=== PATIENT | female | born 1965 | race Caucasian/White ===

== ENCOUNTER 2024-10-06 11:39 | Outpatient (REF) | payer OTHER, SELFPAY ==
--- OUTSIDE RECORDS SUMMARY | 2024-10-07 14:07 | XMS_ITS | Encounter Summary ---
Author Organization [facility] Address [address] [place] [address] Care Team Providers Care Learning Analyst Name Role Phone Melisa Jensen MD Primary Care Provider Reason for Visit * Reason Comments Flank Pain Left flank pain with nausea hx of kidney stones Encounter Details Date Type Department Care Team (Late st Contact Info) Description 10/01/2024 5:11 PM EDT - 10/01/2024 9:29 PM EDT Emergency [facility] Emergency [address] [place] [id number] Bilateral flank pain (Primary Dx); LUQ pain [...] a primary care physician, please call the [facility] at [phone] [facility] a new primary care physician. Please return to the emergency department if you develop any severe change in your symptoms, or if you experience any other new or worsening symptoms or concerns. * Attachments The following attachments cannot be sent through Care Everywhere. * Abdominal Pain (Italian) * Flank Pain (Italian) documented in this encounter Medications at Time [...] REFLEX MICROSCOPIC AND CULTURE - Abnormal Specific [place] Urine 1.006 pH, Urine 6.5 Leukocytes, Urine [...] Procedure Abnormality Status --------- ------ CBC auto differential[[id number]] Final result Please view results for these tests on the individual orders. URINALYSIS WITH REFLEX MICROSCOPIC AND CULTURE Narrative: The following orders were created for panel order Urinalysis with reflex microscopic and culture. Procedure Abnormality Status --------- ------ Urinalysis with reflex ...[[id number]] Abnormal Final result Ward urine culture tube[[id number]] Final result Please view results for these [...] LAB CHEMISTRY METHOD 10/01/2024 6:38 PM EDT [facility] Blood Venous blood specimen / Unknown Venipuncture / Unknown 10/01/2024 5:23 PM EDT 10/01/2024 6:01 PM EDT us Fransico FIGUEROA LAB BLOOD ORDERABLES Final Resul t [facility] [address] [place] [address], [place] [phone] * CBC auto differential (10/01/2024 5:23 PM EDT) [facility] WBC 9.2 4.8 - 10.8 K/mcL LAB HEMETOLOGY METHOD 10/01/2024 6:18 PM EDT [facility] RBC 4.20 3.80 - 4.80 M/mcL LAB HEMETOLOGY METHOD 10/01/2024 6:18 PM EDT [facility] Hemoglobin 12.8 11.5 - 16.0 g/dL LAB HEMETOLOGY METHOD 10/01/2024 6:18 PM EDT [facility] Hematocrit 39.3 35.0 - 47.0 % LAB HEMETOLOGY METHOD 10/01/2024 6:18 PM EDT [facility] MCV 94.5 79.0 - 98.0 FL LAB HEMETOLOGY METHOD 10/01/2024 6:18 PM EDT [facility] MCH 30.8 27.0 - 32.0 pcg LAB HEMETOLOGY METHOD 10/01/2024 6:18 PM EDT [facility] MCHC 32.6 32.0 - 37.0 g/dL LAB HEMETOLOGY METHOD 10/01/2024 6:18 PM EDT [facility] RDW 12.5 11.0 - 15.0 % LAB HEMETOLOGY METHOD 10/01/2024 6:18 PM EDT [facility] Platelets 322 130 - 400 K/mcL LAB HEMETOLOGY METHOD 10/01/2024 6:18 PM EDT [facility] MPV 10.2 7.0 - 11.0 FL LAB HEMETOLOGY METHOD 10/01/2024 6:18 PM EDT [facility] NRBC 0.0 <1.0 % LAB HEMETOLOGY METHOD 10/01/2024 6:18 PM EDT [facility] NRBC Absolute 0.00 <0.10 K/mcL LAB HEMETOLOGY METHOD 10/01/2024 6:18 PM EDT [facility] Neutrophils Relative 57.6 % LAB HEMETOLOGY METHOD 10/01/2024 6:18 PM EDT [facility] Lymphocytes Relative 33.6 % LAB HEMETOLOGY METHOD 10/01/2024 6:18 PM [facility] Monocytes Relative 5.0 % LAB HEMETOLOGY METHOD 10/01/2024 6:18 PM [facility] Eosinophils Relative 2.8 % LAB HEMETOLOGY METHOD 10/01/2024 6:18 PM [facility] Basophils Relative 0.8 % LAB HEMETOLOGY METHOD 10/01/2024 6:18 PM [facility] Immature Granulocytes Relative 0.2 % LAB HEMETOLOGY METHOD 10/01/2024 6:18 PM [facility] Neutrophils Absolute 5.29 1.50 - 7.00 K/mcL LAB HEMETOLOGY METHOD 10/01/2024 6:18 PM [facility] Lymphocytes Absolute 3.08 1.00 - 5.00 K/mcL LAB HEMETOLOGY METHOD 10/01/2024 6:18 PM [facility] Monocytes Absolute 0.46 0.20 - 1.00 K/mcL LAB HEMETOLOGY METHOD 10/01/2024 6:18 PM [facility] Eosinophils Absolute 0.26 0.00 - 0.50 K/mcL LAB HEMETOLOGY METHOD 10/01/2024 6:18 PM [facility] Basophils Absolute 0.07 0.00 - 0.20 K/mcL LAB HEMETOLOGY METHOD 10/01/2024 6:18 PM [facility] Immature Granulocytes Absolute 0.02 0.00 - 0.03 K/mcL LAB HEMETOLOGY METHOD 10/01/2024 6:18 PM [facility] Blood Venous blood specimen / Unknown Venipuncture / Unknown 10/01/2024 5:23 PM EDT 10/01/2024 6:01 PM EDT us Rashard Boyd MD LAB BLOOD ORDERABLES Final Resu lt [facility] [address] [place] [address], [place] [phone] * (ABNORMAL) Comprehensive metabolic panel (10/01/2024 5:23 PM EDT) Pathologist [facility] Sodium 139 133 - 145 mmol/L LAB CHEMISTRY METHOD 10/01/2024 6:38 PM EDT [facility] Potassium 4.1 3.5 - 5.5 mmol/L LAB CHEMISTRY METHOD 10/01/2024 6:38 PM [facility] Chloride 106 96 - 110 mmol/L LAB CHEMISTRY METHOD 10/01/2024 6:38 PM T [facility] CO2 25 21 - 32 mmol/L LAB CHEMISTRY METHOD 10/01/2024 6:38 PM EDT [facility] Anion Gap 8 3 - 11 LAB CHEMISTRY METHOD 10/01/2024 6:38 PM [facility] Glucose 92 70 - 100 mg/dL LAB CHEMISTRY METHOD 10/01/2024 6:38 PM [facility] BUN 15 5 - 25 mg/dL LAB CHEMISTRY METHOD 10/01/2024 6:38 PM EDT [facility] Creatinine 0.95 0.50 - 1.10 mg/dL LAB CHEMISTRY METHOD 10/01/2024 6:38 PM [facility] eGFR 69 >=60 mL/min/1. 73m2 LAB CHEMISTRY METHOD 10/01/2024 6:38 PM T [facility] Comment:Calculation based on the??Chronic Kidney Disease Epidemiology Collaboration (CKD-EPI) equation refit??without adjustment for race. BUN/Creatinine Ratio 15.8 LAB CHEMISTRY METHOD 10/01/2024 6:38 PM EDT [facility] Calcium 10.6(H) 8.5 - 10.5 mg/dL LAB CHEMISTRY METHOD 10/01/2024 6:38 PM EDT [facility] AST (SGOT) 24 10 - 42 unit/L LAB CHEMISTRY METHOD 10/01/2024 6:38 PM T [facility] ALT (SGPT) 21 10 - 60 unit/L LAB CHEMISTRY METHOD 10/01/2024 6:38 PM EDT [facility] Alkaline Phosphatase 65 42 - 121 unit/L LAB CHEMISTRY METHOD 10/01/2024 6:38 PM EDT [facility] Total Protein 7.7 6.0 - 8.0 g/dL LAB CHEMISTRY METHOD 10/01/2024 6:38 PM [facility] Albumin 4.9 3.2 - 5.0 g/dL LAB CHEMISTRY METHOD 10/01/2024 6:38 PM T [facility] Total Bilirubin 0.6 0.0 - 1.4 mg/dL LAB CHEMISTRY METHOD 10/01/2024 6:38 PM T [facility] Blood Venous blood specimen / Unknown Venipuncture / Unknown 10/01/2024 5:23 PM EDT 10/01/2024 6:01 PM EDT us Rashard Boyd MD LAB BLOOD ORDERABLES Final Resu lt [facility] [address] [place] [address], * ECG 12 lead (10/01/2024 4:55 PM EDT) Ventricular Rate ECG 57 BPM GEMUSE Atrial Rate 57 BPM GEMUSE P-R Interval 158 ms GEMUSE QRS Duration 92 ms GEMUSE Q-T Interval 448 ms GEMUSE QTc 436 ms GEMUSE P Wave Burke 61 degrees GEMUSE R Burke -32 degrees GEMUSE T Burke 24 degrees GEMUSE ECG Interpretation Sinus bradycardia [...] ECG ORDERABLES Final Result Performing Organization Address [facility] Co de Phone Number GEMUSE * Culture urine (10/01/2024 3:55 PM EDT) Pathologist [facility] Culture, Urine <10,000 cfu/ml, insignificant count, no further workup. 10/02/2024 8:23 AM EDT [facility] Urine Urine specimen obtained by clean catch procedure / Unknown Non-blood Collection / Unknown 10/01/2024 3:55 PM EDT 10/01/2024 4:13 PM EDT us Rashard Boyd MD LAB MICROBIOLOGY - GENERAL ORDE RABLES Final Result Performing Organization Address [facility] de Phone Number [facility] [address] [place] [address], [place] [phone] * Ward urine culture tube (10/01/2024 3:55 PM EDT) Extra Tube Hold for add-ons. 10/01/2024 6:02 PM EDT [facility] Comment:Auto resulted. Urine Urine specimen obtained by clean catch procedure / Unknown Non-blood Collection / Unknown 10/01/2024 3:55 PM EDT 10/01/2024 4:07 PM EDT us Rashard Boyd MD LAB URINE ORDERABLES Final Resu lt [facility] [address] [place] [address], [place] [phone] * (ABNORMAL) Urinalysis with reflex microscopic and culture (10/01/2024 3:55 PM EDT) Specific [place] Urine 1.006 1.003 - 1.030 LAB URINALYSIS - AUTOMATED METHOD 10/01/2024 4:13 PM [facility] pH, Urine 6.5 5.0 - 8.0 pH LAB URINALYSIS - AUTOMATED METHOD 10/01/2024 4:13 PM [facility] Leukocytes, Urine Small(A) Negative LAB URINALYSIS - AUTOMATED METHOD 10/01/2024 4:13 PM [facility] Nitrite, Urine Negative Negative LAB URINALYSIS - AUTOMATED METHOD 10/01/2024 4:13 PM [facility] Protein, Urine Negative <=Trace mg/dL LAB URINALYSIS - AUTOMATED METHOD 10/01/2024 4:13 PM [facility] Glucose, Urine Negative Negative mg/dL LAB URINALYSIS - AUTOMATED METHOD 10/01/2024 4:13 PM [facility] Ketones, Urine Negative Negative mg/dL LAB URINALYSIS - AUTOMATED METHOD 10/01/2024 4:13 PM [facility] Urobilinogen, Urine 0.2 0.2 - 1.0 mg/dL LAB URINALYSIS - AUTOMATED METHOD 10/01/2024 4:13 PM [facility] Bilirubin, Urine Negative Negative LAB URINALYSIS - AUTOMATED METHOD 10/01/2024 4:13 PM [facility] Blood, Urine Negative Negative LAB URINALYSIS - AUTOMATED METHOD 10/01/2024 4:13 PM [facility] RBC, Urine 0.5 0 - 4 /HPF LAB URINALYSIS - AUTOMATED METHOD 10/01/2024 4:13 PM EDT [facility] WBC, Urine 3.9 0 - 4 /HPF LAB URINALYSIS - AUTOMATED METHOD 10/01/2024 4:13 PM EDT [facility] Squamous Epithelial, Urine 64(H) 0 - 60 /LPF LAB URINALYSIS - AUTOMATED METHOD 10/01/2024 4:13 PM EDT [facility] Bacteria, Urine Negative Negative /HPF LAB URINALYSIS - AUTOMATED METHOD 10/01/2024 4:13 PM [facility] Hyaline Casts, Urine 1.6 0 - 3 /LPF LAB URINALYSIS - AUTOMATED METHOD 10/01/2024 4:13 PM [facility] Urine Urine specimen obtained by clean catch procedure / Unknown Non-blood Collection / Unknown 10/01/2024 3:55 PM EDT 10/01/2024 4:07 PM EDT us Rashard Boyd MD LAB URINE ORDERABLES Final Resu lt [facility] [address] [place] [address], documented in this encounter Visit Diagnoses Diagnosis [...] 10/01/2024 documented in this encounter Care Teams Learning Analyst Relationship Specialty Start Date End Date Melisa Jensen MD [address] [place] [phone] PCP - General Internal Medicine 10/01/24 documented as of this encounter
--- OUTSIDE RECORDS SUMMARY | 2024-10-07 14:07 | XMS_ITS | Clinical Summary ---
Author Organization [address] [facility] Address [address] [place] [address] Phone Care Team Providers Care Coil Cutter Name Role Phone Melisa Jensen MD Primary Care Provider [phone] Allergies Active Allergy Reactions Criticality Noted Date [...] of the cervical spine today taken at [facility] and it shows good position [...] EDT - 10/01/2024 9:29 PM EDT Emergency [facility] Emergency [address] [place] [address] Bilateral flank pain (Primary Dx); LUQ pain Discharge Disposition: Home or Self Care 09/17/2024 Telephone Neurosurgery [facility] [address] [phone] Joann Myers PA 08/17/2024 Telephone Neurosurgery [facility] [address] [phone] Kirstie Kramer MA from Last [...] LAB HEMETOLOGY METHOD 10/01/2024 6:18 PM EDT [facility] RBC 4.20 3.80 - 4.80 M/mcL LAB HEMETOLOGY METHOD 10/01/2024 6:18 PM EDT [facility] Hemoglobin 12.8 11.5 - 16.0 g/dL LAB HEMETOLOGY METHOD 10/01/2024 6:18 PM EDT [facility] Hematocrit 39.3 35.0 - 47.0 % LAB HEMETOLOGY METHOD 10/01/2024 6:18 PM EDT [facility] MCV 94.5 79.0 - 98.0 FL LAB HEMETOLOGY METHOD 10/01/2024 6:18 PM EDT [facility] MCH 30.8 27.0 - 32.0 pcg LAB HEMETOLOGY METHOD 10/01/2024 6:18 PM EDT [facility] MCHC 32.6 32.0 - 37.0 g/dL LAB HEMETOLOGY METHOD 10/01/2024 6:18 PM EDT [facility] RDW 12.5 11.0 - 15.0 % LAB HEMETOLOGY METHOD 10/01/2024 6:18 PM EDT [facility] Platelets 322 130 - 400 K/mcL LAB HEMETOLOGY [facility] MPV 10.2 7.0 - 11.0 FL LAB HEMETOLOGY METHOD 10/01/2024 6:18 PM EDT [facility] NRBC 0.0 <1.0 % LAB HEMETOLOGY METHOD [facility]24 6[facility] NRBC Absolute 0.00 <0.10 K/mcL LAB HEMETOLOGY METHOD 10/01/2024 6:18 PM [facility] Neutrophils Relative 57.6 % LAB HEMETOLOGY METHOD 10/01[facility]2024 6[facility] Lymphocytes Relative 33.6 % LAB HEMETOLOGY METHOD 10/01/2024 6:18 PM [facility] Monocytes Relative 5.0 % LAB HEMETOLOGY METHOD 10/01/2024 6:18 PM [facility] Eosinophils Relative 2.8 % LAB HEMETOLOGY METHOD 10/01/2024 6:18 PM [facility] Basophils Relative 0.8 % LAB HEMETOLOGY METHOD 10/01/2024 6:18 PM [facility] Immature Granulocytes Relative 0.2 % LAB HEMETOLOGY METHOD 10/01/2024 6:[facility] Neutrophils Absolute 5.29 1.50 - 7.00 K/mcL LAB HEMETOLOGY METHOD 10/01/2024 6:18 [facility] Lymphocytes Absolute 3.08 1.00 - 5.00 K/mcL LAB HEMETOLOGY METHOD 10/01/2024 6:18 PM EDT [facility] Monocytes Absolute 0.46 0.20 - 1.00 K/[facility] LAB HEMETOLOGY METHOD 10/01/2024 6:18 PM EDT [facility] Eosinophils Absolute 0.26 0.00 - 0.50 K/[facility] LAB HEMETOLOGY METHOD 10/01/2024 6:18 PM EDT [facility] Basophils Absolute 0.07 0.00 - 0.20 K/[facility] LAB HEMETOLOGY METHOD 10/01/2024 6:18 PM EDT [facility] Immature Granulocytes Absolute 0.02 0.00 - 0.03 K/[facility] LAB HEMETOLOGY METHOD 10/01/2024 6:18 PM EDT [facility] Blood Venous blood specimen / Unknown Venipuncture / Unknown 10/01/2024 5:23 PM EDT 10/01/2024 6:01 PM EDT us Rashard Boyd MD LAB BLOOD ORDERABLES Final Resu lt [facility] [address] [place] [address], [place] [phone] * Lipase (10/01/2024 5:23 PM EDT) Lipase 60 13 - 75 unit/L LAB CHEMISTRY METHOD 10/01/2024 6:38 PM EDT [facility] Blood Venous blood specimen / Unknown Venipuncture / Unknown 10/01/2024 5:23 PM EDT 10/01/2024 6:01 PM EDT us Fransico FIGUEROA LAB BLOOD ORDERABLES Final Resul t Performing Organization Address City/[facility]/ZIP Co de Phone Number [facility] [address] [place] [address], [place] [phone] * (ABNORMAL) Comprehensive metabolic panel (10/01/2024 5:23 PM EDT) Sodium 139 133 - 145 mmol/L LAB CHEMISTRY METHOD 10/01/2024 6:38 PM [facility] Potassium 4.1 3.5 - 5.5 mmol/L LAB CHEMISTRY METHOD 10/01/2024 6:38 PM [facility] Chloride 106 96 - 110 mmol/L LAB CHEMISTRY METHOD 10/01/2024 6:38 PM [facility] CO2 25 21 - 32 mmol/L LAB CHEMISTRY METHOD 10/01/2024 6:38 PM [facility] Anion Gap 8 3 - 11 LAB CHEMISTRY METHOD 10/01/2024 6:38 PM [facility] Glucose 92 70 - 100 mg/dL LAB CHEMISTRY METHOD 10/01/2024 6:38 PM [facility] BUN 15 5 - 25 mg/dL LAB CHEMISTRY METHOD 10/01/2024 6:38 PM [facility] Creatinine 0.95 0.50 - 1.10 mg/dL LAB CHEMISTRY METHOD 10/01/2024 6:38 PM [facility] eGFR 69 >=60 mL/min/1. 73m2 LAB CHEMISTRY METHOD 10/01/2024 6:38 PM [facility] Comment:Calculation based on the??Chronic Kidney Disease Epidemiology Collaboration (CKD-EPI) equation refit??without adjustment for race. BUN/Creatinine Ratio 15.8 LAB CHEMISTRY METHOD 10/01/2024 6:38 PM [facility] Calcium 10.6(H) 8.5 - 10.5 mg/dL LAB CHEMISTRY METHOD 10/01/2024 6:38 PM [facility] AST (SGOT) 24 10 - 42 unit/L LAB CHEMISTRY METHOD 10/01/2024 6:38 PM [facility] ALT (SGPT) 21 10 - 60 unit/L LAB CHEMISTRY METHOD 10/01/2024 6:38 PM EDT [facility] Alkaline Phosphatase 65 42 - 121 unit/L LAB CHEMISTRY METHOD 10/01/2024 6:38 PM EDT [facility] Total Protein 7.7 6.0 - 8.0 g/dL LAB CHEMISTRY METHOD 10/01/2024 6:38 PM EDT [facility] Albumin 4.9 3.2 - 5.0 g/dL LAB CHEMISTRY METHOD 10/01/2024 6:38 PM EDT [facility] Total Bilirubin 0.6 0.0 - 1.4 mg/dL LAB CHEMISTRY METHOD 10/01/2024 6:38 PM EDT [facility] Blood Venous blood specimen / Unknown Venipuncture / Unknown 10/01/2024 5:23 PM EDT 10/01/2024 6:01 PM EDT Rashard Boyd MD LAB BLOOD ORDERABLES Final Resu lt [facility] [address] [place] [address], * ECG 12 lead (10/01/2024 4:55 PM EDT) Ventricular Rate ECG 57 BPM GEMUSE Atrial Rate 57 BPM GEMUSE P-R Interval 158 ms GEMUSE QRS Duration 92 ms GEMUSE Q-T Interval 448 ms GEMUSE QTc 436 ms GEMUSE P Wave [place] 61 degrees GEMUSE R [place] -32 degrees GEMUSE T [place] 24 degrees GEMUSE ECG Interpretation Sinus bradycardia [...] and culture (10/01/2024 3:55 PM EDT) Specific [place] Urine 1.006 1.003 - 1.030 LAB URINALYSIS - AUTOMATED METHOD 10/01/2024 4:13 PM [facility] pH, Urine 6.5 5.0 - 8.0 pH LAB URINALYSIS - AUTOMATED METHOD 10/01/2024 4:13 PM [facility] Leukocytes, Urine Small(A) Negative LAB URINALYSIS - AUTOMATED METHOD 10/01/2024 4:13 PM [facility] Nitrite, Urine Negative Negative LAB URINALYSIS - AUTOMATED METHOD 10/01/2024 4:13 PM [facility] Protein, Urine Negative <=Trace mg/dL LAB URINALYSIS - AUTOMATED METHOD 10/01/2024 4:13 PM [facility] Glucose, Urine Negative Negative mg/dL LAB URINALYSIS - AUTOMATED METHOD 10/01/2024 4:13 PM [facility] Ketones, Urine Negative Negative mg/dL LAB URINALYSIS - AUTOMATED METHOD 10/01/2024 4:13 PM [facility] Urobilinogen, Urine 0.2 0.2 - 1.0 mg/dL LAB URINALYSIS - AUTOMATED METHOD 10/01/2024 4:13 PM [facility] Bilirubin, Urine Negative Negative LAB URINALYSIS - AUTOMATED METHOD 10/01/2024 4:13 PM [facility] Blood, Urine Negative Negative LAB URINALYSIS - AUTOMATED METHOD 10/01/2024 4:13 PM [facility] RBC, Urine 0.5 0 - 4 /HPF LAB URINALYSIS - AUTOMATED METHOD 10/01/2024 4:13 PM EDT [facility] WBC, Urine 3.9 0 - 4 /HPF LAB URINALYSIS - AUTOMATED METHOD 10/01/2024 4:13 PM EDT [facility] Squamous Epithelial, Urine 64(H) 0 - 60 /LPF LAB URINALYSIS - AUTOMATED METHOD 10/01/2024 4:13 PM EDT [facility] Bacteria, Urine Negative Negative /HPF LAB URINALYSIS - AUTOMATED METHOD 10/01/2024 4:13 PM EDT [facility] Hyaline Casts, Urine 1.6 0 - 3 /LPF LAB URINALYSIS - AUTOMATED METHOD 10/01/2024 4:13 PM EDT [facility] Urine Urine specimen obtained by clean catch procedure / Unknown Non-blood Collection / Unknown 10/01/2024 3:55 PM EDT 10/01/2024 4:07 PM EDT us Rashard Boyd MD LAB URINE ORDERABLES Final Resu lt Performing Organization Address [facility]/ZIP Co de Phone Number [facility] [address] [place] [address], [place] [phone] * Ward urine culture tube (10/01/2024 3:55 PM EDT) Extra Tube Hold for add-ons. 10/01/2024 6:02 PM EDT [facility] Comment:Auto resulted. Urine Urine specimen obtained by clean catch procedure / Unknown Non-blood Collection / Unknown 10/01/2024 3:55 PM EDT 10/01/2024 4:07 PM EDT us Rashard Boyd MD LAB URINE ORDERABLES Final Resu lt Performing Organization Address [facility]/ZIP Co de Phone Number [facility] [address] [place] [address], [place] [phone] * Culture urine (10/01/2024 3:55 PM EDT) Pathologist [facility] Culture, Urine <10,000 cfu/ml, insignificant count, no further workup. 10/02/2024 8:23 AM EDT [facility] Urine Urine specimen obtained by clean catch procedure / Unknown Non-blood Collection / Unknown 10/01/2024 3:55 PM EDT 10/01/2024 4:13 PM EDT Rashard Boyd MD LAB MICROBIOLOGY - GENERAL CAR [place] Final Result [facility] [address] [place] [address], * (ABNORMAL) Lipid panel (05/08/2018) [facility] LDL/HDL Ratio 5(A) 0 - 4 Triglycerides 254(A) 0 - 150 mg/dL Cholesterol 255(A) 0 - 200 mg/dL HDL 53 >=40 mg/dL LDL Cholesterol 152(A) 0 - 100 mg/dL Blood Venous blood specimen / Unknown Historical Provider LAB BLOOD ORDERABLES Naomi l Result * Cervical Cancer Screening: HPV (10/17/2016) [facility] Cervical Cancer Screening: HPV Abstracted, Negative Historical Provider HEALTH MAINTENANCE Final Result from Last 3 Months or Most Recently Relevant to Health Maintenance Insurance [facility] Advance Directives Documents on File Type Date Recorded Patient Senior Adults Director Expl anation Health Care Decision (hx) [...] 07/09/2014 AD [place] DIRECTIVE Care Teams Coil Cutter Relationship Specialty Start Date End Date Melisa Jensen MD [address] [place] [phone] PCP - General Internal Medicine 10/01/24
== END 2024-10-06 11:40 | disposition home or self-care (01) ==
LOC: HO.HOSX 11:39
PROVIDERS: Visit Provider Orthopaedic Surgery
DX: Z13.89 Encounter for screening for other disorder (principal)

== ENCOUNTER 2024-10-06 13:15 | Emergency (ER) | payer OTHER, SELFPAY ==
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
[2024-10-06 13:19] VITALS: BP 152/90; PULSE 97; O2SAT 98
[2024-10-06 13:28] VITALS: BP 145/81; PULSE 90; RESP 20; TEMP 36.8; O2SAT 95; BMI 21.8
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
[2024-10-06] MEDS: Acetaminophen 325 MG TABLET 975 MG PO (14:18)
[2024-10-06] MEDS: Cyclobenzaprine HCl 5 MG TABLET PO (14:18)
[2024-10-06 15:18] VITALS: BP 113/58; PULSE 60; RESP 20; TEMP 36.7; O2SAT 96
[2024-10-06 16:47] VITALS: BP 113/58; PULSE 60; RESP 20; TEMP 36.7; O2SAT 96
--- OUTSIDE RECORDS SUMMARY | 2024-10-06 17:11 | XMS_ITS | Encounter Summary ---
Author Organization [facility] Address [address] [place] [address] Care Team Providers Care [employer] Operator Name Role Phone Melisa Jensen MD Primary Care Provider [phone] Reason for Visit * Reason Comments Flank Pain Left flank pain with nausea hx of kidney stones Encounter Details Date Type Department Care Team (Late st Contact Info) Description 10/01/2024 5:11 PM EDT - 10/01/2024 9:29 PM EDT Emergency [facility] Emergency [address] [place] [id number] Bilateral flank pain (Primary Dx); LUQ pain Discharge Disposition: Home or Self Care Social History Tobacco Use Types Packs/Day Years Used Date Smoking Tobacco: Never Smokeless Tobacco: Never Alcohol Use Standard Drinks/Week Comments Yes 0.8 (1 standard drink = 0.6 oz p ure alcohol) Comments Unknown Sex and Gender Information Value Date Recorded Sex Assigned at Female 10/01/2024 5:18 PM EDT Legal Sex Female 8:42 PM EST Gender Identity Female 10/01/2024 5:18 PM EDT Sexual Orientation Straight 10/01/2024 5: 18 PM EDT documented as of this encounter Last Filed Vital Signs Vital Sign Reading Time Taken Comments Blood Pressure 129/77 10/01/2024 5:57 PM EDT Pulse 58 10/01/2024 5:57 PM EDT Temperature 36.7 ??C (98.1 ??F) 10/01/2024 5:57 PM ED T Respiratory Rate 16 10/01/2024 5:57 PM EDT Oxygen Saturation 100% 10/01/2024 9:06 PM EDT Inhaled Oxygen Concentration - - Weight 56.2 kg (124 lb) 10/01/2024 2:30 PM EDT Height 160 cm (5' 3 ) 10/01/2024 2:30 PM EDT Body Mass Index 21.97 10/01/2024 2:30 PM EDT documented in this encounter Functional Status * Are you deaf or do you have serious difficulty hearing? Answer Date of Assessment Author No 10/01/2024 5:24 PM EDT Bree Marcum RN * Are you blind or do you have serious difficulty seeing, even when wearing glasses? Answer Date of Assessment Author No 10/01/2024 5:24 PM EDT Bree Marcum RN * Do you have serious difficulty walking or climbing stairs? Answer Date of Assessment Author No 10/01/2024 5:24 PM EDT Bree Marcum RN * Do you have serious difficulty dressing or bathing? Answer Date of Assessment Author No 10/01/2024 5:24 PM EDT Bree Marcum RN * Because of a physical, mental, or emotional condition, do you have serious difficulty doing errandsalone such as visiting the doctor? Answer Date of Assessment Author No 10/01/2024 5:24 PM EDT Bree Marcum RN documented as of this encounter Mental Status * Because of a physical, mental, or emotional condition, do you have serious difficulty concentrating, remembering, or making decisions? (5 years old or older) Answer Entry Date Author No 10/01/2024 5:24 PM EDT Bree Marcum RN documented in this encounter Discharge Instructions * Discharge Instructions* CAROLINA Carbajal - 10/01/2024 9:14 PM EDT You were seen in the emergency room today for bilateral flank pain and left upper quadrant pain. Your CT scan and lab work did not show any concerning findings, urinalysis looks good. EKG was not concerning. Drink plenty of fluids. Take Tylenol or ibuprofen as directed as needed for pain. Apply warm compresses to the affected area of your back a few times daily as tolerated. Try gentle stretching. Please follow up with your primary care physician regarding this emergency room visit. If you do not have a primary care physician, please call the [facility] at [phone] [facility] care physician. Please return to the emergency department if you develop any severe change in your symptoms, or if you experience any other new or worsening symptoms or concerns. * Attachments The following attachments cannot be sent through Care Everywhere. * Abdominal Pain (Nigerien) * Flank Pain (Nigerien) documented in this encounter Medications at Time of Discharge albuterol HFA (PROAIR HFA ; PROVENTIL HFA ; VENTOLIN HFA) 90 mcg/actuation inhaler Inhale 2 puffs by mouth every 6 (six) hours. 03/20/2024 cetirizine (ZyrTEC) 10 mg tablet Take 1 Tablet by mouth daily. EPINEPHrine (EpiPen 2-Alek) 0.3 mg/0.3 mL injection Inject as directed as needed. fluticasone propionate (FLONASE NASL) by Nasal route. fluticasone-salme terol (Wixela Inhub) 250-50 mcg/dose diskus inhaler Inhale by mouth. 02/17/2024 omeprazole (PriLOSEC) [address] capsule Take 40 mg by mouth daily. pravastatin (PRAVACHOL) 40 mg tablet Take 40 mg by mouth daily. tiZANidine (ZANAFLEX) 4 mg tablet Take 1 tablet (4 mg total) by mouth 1 (one) time each day. 03/20/2024 documented as of this encounter Discharge Disposition Disposition Code Departure Means Destination Comment s Home or Self Care documented in this encounter Progress Notes * Kaley Bird RN - 10/01/2024 2:29 PM EDT Pt c/o dark urine x 1 week , decreased appetite, nausea , lt flank pain . Hx stones. [facility] to [facility] , sent to ed * CAROLINA Carbajal - 10/01/2024 2:23 PM EDT Emergency Medicine Note Patient Name: Kelly Reyes Initial Evaluation: 10/01/2024 : 1965 Patient's PCP: Melisa Jensen MD Emergency Physician: CAROLINA Carbajal History of Present Illness Chief Complaint: Chief Complaint Patient presents with Flank Pain Left flank pain with nausea hx of kidney stones HPI: This is a 59-year-old female with a past medical history significant for GERD, hyperlipidemia,nephrolithiasis, PUD, anxiety, among others presenting with bilateral flank pain and left upper quadrant and lower chest wall pain. She states the lower chest wall pain is over the rib where it meetsthe abdomen and feels like a bruise when she presses on it but denies any trauma to the area. It does not radiate. She denies any other chest pain. She reports she has an extensive history of nephrolithiasis followed by Dr. Delaney requiring several surgical procedures to remove stones. Notes herurine has been darker than usual. Denies any shortness of breath, cough, palpitations, fevers, chills, vomiting, lower abdominal pain, dysuria, hematuria, increased urinary urgency or frequency, diarrhea, constipation, melena, hematochezia. ROS: I have performed a ROS with the pertinent positives and negatives documented in the history ofpresent illness. 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 DX:DDD (degenerative disc disease), thoracic Depression 10/30/2017 DX:Depression GERD (gastroesophageal reflux disease) DX:GERD (gastroesophageal reflux disease); COMMENT: taking omeprazole History of thyroid nodule DX:History of thyroid nodule; COMMENT: removed Hyperlipidemia 06/12/2017 DX:Hyperlipidemia Kidney stone DX:Kidney stone; COMMENT: has procedure done every few years, has urologist Multiple gastric ulcers DX:Multiple gastric ulcers Vitamin D deficiency 10/17/2016 DX:Vitamin D deficiency Past Surgical History: Procedure Laterality Date BREAST REDUCTION Bilateral ENDOMETRIAL ABLATION NECK SURGERY 07/05/2022 C4-5, C5-6 ACDF with plating, Dr. Hayward OTHER SURGICAL HISTORY THYROIDECTOMY TOTAL/SUBTOTAL RAD NECK DISSECT TONSILLECTOMY TUBAL LIGATION Social History Tobacco Use Smoking status: Never Smokeless tobacco: Never Substance Use Topics Alcohol use: Yes Alcohol/week: 0.8 standard drinks of alcohol Drug use: No Family History Problem Relation Name Age of Onset No Known Problems Father No Known Problems Mother is allergic to bee venom protein (honey bee). No current facility-administered medications on file prior to encounter. Current Outpatient Medications on File Prior to Encounter Medication Sig Dispense Refill albuterol HFA (PROAIR HFA ; PROVENTIL HFA ; VENTOLIN HFA) 90 mcg/actuation inhaler Inhale 2 puffs by mouth every 6 (six) hours. cetirizine (ZyrTEC) 10 mg tablet Take 1 Tablet by mouth daily. EPINEPHrine (EpiPen 2-Alek) 0.3 mg/0.3 mL injection Inject as directed as needed. fluticasone propionate (FLONASE NASL) by Nasal route. fluticasone-salmeterol (Wixela Inhub) 250-50 mcg/dose diskus inhaler Inhale by mouth. omeprazole (PriLOSEC) [address] capsule Take 40 mg by mouth daily. pravastatin (PRAVACHOL) 40 mg tablet Take 40 mg by mouth daily. tiZANidine (ZANAFLEX) 4 mg tablet Take 1 tablet (4 mg total) by mouth 1 (one) time each day. Physical Exam ED Triage Vitals [10/01/24 1430] Temp Heart Rate Resp BP 36.8 ??C (98.2 ??F) 68 16 137/80 SpO2 Temp Source Heart Rate Source Patient Position 98 % Oral -- -- BP Location FiO2 (%) -- -- GENERAL: Nontoxic, no acute distress. SKIN: Appropriate color for ethnicity, warm, dry. No rashes. HEENT: No stridor NECK: Soft, supple, full ROM, Midline structures, nontender, no step-off, no deformity. CHEST: Heart regular rate and rhythm, no rubs, no gallops or murmurs. PULMONARY: Clear to auscultation bilaterally without any adventitious lung sounds. ABDOMINAL: Soft, nondistended with positive bowel sounds. No CVA tenderness bilaterally. left upperquadrant tenderness to palpation. No rebound or guarding, negative Rovsing, negative Haas's. : Deferred. MUSCULOSKELETAL: Normal tone, 5 out of 5 motor, ambulates with a stable gait, moves all extremitiesspontaneously. NEURO: Alert and oriented x3, Cranial nerves II through XII are grossly intact. PSYCHIATRIC: Normal affect, fluid speech, good eye contact and appropriate demeanor. Results Labs Reviewed COMPREHENSIVE METABOLIC PANEL - Abnormal Result Value Sodium 139 Potassium 4.1 Chloride 106 CO2 25 Anion Gap 8 Glucose 92 BUN 15 Creatinine 0.95 eGFR 69 BUN/Creatinine Ratio 15.8 Calcium 10.6 (*) AST (SGOT) 24 ALT (SGPT) 21 Alkaline Phosphatase 65 Total Protein 7.7 Albumin 4.9 Total Bilirubin 0.6 URINALYSIS WITH REFLEX MICROSCOPIC AND CULTURE - Abnormal Specific Pierson Urine 1.006 pH, Urine 6.5 Leukocytes, Urine Small (*) Nitrite, Urine Negative Protein, Urine Negative Glucose, Urine Negative Ketones, Urine Negative Urobilinogen, Urine 0.2 Bilirubin, Urine Negative Blood, Urine Negative RBC, Urine 0.5 WBC, Urine 3.9 Squamous Epithelial, Urine 64 (*) Bacteria, Urine Negative Hyaline Casts, Urine 1.6 LIPASE - Normal Lipase 60 CULTURE URINE CBC AND DIFFERENTIAL Narrative: The following orders were created for panel order CBC and differential. Procedure Abnormality Status --------- ------ CBC auto differential[[id number]] Final result Please view results for these tests on the individual orders. URINALYSIS WITH REFLEX MICROSCOPIC AND CULTURE Narrative: The following orders were created for panel order Urinalysis with reflex microscopic and culture. Procedure Abnormality Status --------- ------ Urinalysis with reflex ...[[id number]] Abnormal Final result Ward urine culture tube[[id number]] Final result Please view results for these tests on the individual orders. CBC WITH AUTO DIFFERENTIAL WBC 9.2 RBC 4.20 Hemoglobin 12.8 Hematocrit 39.3 MCV 94.5 MCH 30.8 MCHC 32.6 RDW 12.5 Platelets 322 MPV 10.2 NRBC 0.0 NRBC Absolute 0.00 Neutrophils Relative 57.6 Lymphocytes Relative 33.6 Monocytes Relative 5.0 Eosinophils Relative 2.8 Basophils Relative 0.8 Immature Granulocytes Relative 0.2 Neutrophils Absolute 5.29 Lymphocytes Absolute 3.08 Monocytes Absolute 0.46 Eosinophils Absolute 0.26 Basophils Absolute 0.07 Immature Granulocytes Absolute 0.02 Abnormal Labs Reviewed COMPREHENSIVE METABOLIC PANEL - Abnormal; Notable for the following components: Result Value Calcium 10.6 (*) All other components within normal limits URINALYSIS WITH REFLEX MICROSCOPIC AND CULTURE - Abnormal; Notable for the following components: Leukocytes, Urine Small (*) Squamous Epithelial, Urine 64 (*) All other components within normal limits CT Abdomen Pelvis w Contrast Final Result Impression: 1. No acute abnormalities or CT explanation for flank pain. Specifically, no ureteral stones or hydroureteronephrosis. 2. Nonobstructing right renal calculi. This document has been electronically signed by: Elías Chester MD on 10/01/2024 20:09:55 I have discussed the incidental/abnormal imaging and/or lab abnormalities with the patient and haveinstructed them the need for further evaluation and workup with their primary care doctor. I have provided the patient with a paper copy of the abnormality. The laboratory results, imaging results and other diagnostic exam results were reviewed in the EMR. EKG Interpretation Critical Care Time None Differential Diagnosis Nephrolithiasis Gastritis PUD Pancreatitis Costochondritis Chest wall strain Atypical ACS ? Medical Decision Making Medications sodium chloride 0.9 % bolus 1,000 mL (0 mL intravenous Stopped 10/01/241908) ondansetron (PF) (ZOFRAN) injection 4 mg (4 mg intravenous Given 10/01/241750) sodium chloride 0.9 % flush 10 mL (10 mL intravenous Given 10/01/241956) iopamidoL (ISOVUE-370) 370 mg iodine /mL (76 %) injection 90 mL (90 mL intravenous Given 10/01/241956) ED Course as of 10/01/242113 [place] Oct 01, 2024 174 Patient was seen and evaluated, she is a 59-year-old female presenting with bilateral flank pain as well as focal left lower chest wall pain/left upper quadrant pain that is reproducible to palpation nonradiating. States it feels like a bruise over her rib. No history of trauma to the area. She states she has has history of has extensive history of nephrolithiasis thinks she may have a kidney stone, states her urine has been darker than usual. UA without blood or evidence of infection. Labwork is pending will add on EKG and obtain CT abdomen pelvis with IV contrast. IV fluids and Zofran. Patient declines pain medication at this time. [YB] ED Course User Index [YB] CAROLINA Carbajal Clinical Impressions as of 10/01/242113 Bilateral flank pain LUQ pain Procedures Procedures Diagnosis 1. Bilateral flank pain 2. LUQ pain Disposition Discharge ED Prescriptions None Physician Attestation CAROLINA Carbajal 10/01/241753 CAROLINA Carbajal 10/01/242113 Cosigned by Ellis Townsend DO at 10/01/2024 9:29 PM EDT documented in this encounter Plan of Treatment Not on file documented as of this encounter Procedures Procedure Name Priority Date/Time Associated Diagnosis Comments ECG ANNOTATED 10/02/2024 CT ABDOMEN PELVIS W CONTRAST STAT 10/01/2024 7:58 PM EDT CBC WITH AUTO DIFFERENTIAL STAT 10/01/2024 5:23 PM EDT CBC AND DIFFERENTIAL STAT 10/01/2024 5:23 PM EDT LIPASE STAT Add-on 10/01/2024 5:23 PM EDT COMPREHENSIVE METABOLIC PANEL STAT 10/01/2024 5:23 PM EDT ECG 12-LEAD STAT 10/01/2024 4:55 PM EDT URINALYSIS WITH REFLEX MICROSCOPIC AND CULTURE STAT 10/01/2024 3:55 PM EDT WARD URINE CULTURE TUBE STAT 10/01/2024 3:55 PM EDT URINALYSIS WITH REFLEX MICROSCOPIC AND CULTURE STAT 10/01/2024 3:55 PM EDT CULTURE URINE STAT 10/01/2024 3:55 PM EDT documented in this encounter Results * ECG-Annotated (10/02/2024) us Provider Onbase MD ECG ORDERABLES Final Result * CT Abdomen Pelvis w Contrast (10/01/2024 7:58 PM EDT) Anatomical Region Laterality Modality Body Computed Tomogra phy 10/01/2024 8:09 PM EDT Impressions 10/01/2024 8:09 PM EDT Impression: 1. No acute abnormalities or CT explanation for flank pain. Specifically, no ureteral stones or hydroureteronephrosis. 2. Nonobstructing right renal calculi. This document has been electronically signed by: Elías Chester MD on 10/01/2024 20:09:55 Narrative 10/01/2024 8:09 PM EDT INDICATION: b/l flank pain, LUQ pain, hx kidney stones Exam: Contrast-enhanced CT abdomen and pelvis with multiplanar reformats. Comparison: None. Findings: CT abdomen: Lung bases reveal bibasilar atelectasis. Liver is free of focal lesions and ductal dilatation. Gallbladder is unremarkable. Spleen is unremarkable. Pancreas and adrenal glands appear unremarkable. Right kidney reveals a simple appearing upper pole cyst measuring up to 7.0 cm cross-sectional dimension (3; 65, 15 Hounsfield units). Left kidney reveals subcentimeter hypodensities, too small to characterize although likely small cysts. Right kidney reveals small nonobstructing lower pole calculi. No ureteral stones or hydroureteronephrosis. No free intraperitoneal fluid or retroperitoneal masses or adenopathy. Abdominal aorta is normal caliber with mild calcific athero sclerosis. Bowel loops reveal no abnormal wall thickening or distention. The appendix is unremarkable. No significant diverticular disease. CT pelvis: Uterus and adnexal structures appear unremarkable. Urinary bladder is nondistended. No pelvic masses, fluid or adenopathy. Osseous structures reveal no destructive osseous lesions. Procedure Note Elías Chester MD - 10/01/2024 INDICATION: b/l flank pain, LUQ pain, hx kidney stones Exam: Contrast-enhanced CT abdomen and pelvis with multiplanarreformats. Comparison: None. Findings: CT abdomen: Lung bases reveal bibasilar atelectasis. Liver is free of focal lesions and ductal dilatation. Gallbladder is unremarkable. Spleen is unremarkable. Pancreas and adrenal glands appear unremarkable. Right kidney reveals a simple appearing upper pole cyst measuring up to 7.0 cm cross-sectional dimension (3; 65, 15 Hounsfield units). Leftkidney reveals subcentimeter hypodensities, too small to characterize although likely small cysts. Right kidney reveals small nonobstructing lower pole calculi. No ureteral stones or hydroureteronephrosis. No free intraperitoneal fluid or retroperitoneal masses or adenopathy. Abdominal aorta is normal caliber with mild calcific athero sclerosis. Bowel loops reveal no abnormal wall thickening or distention. Theappendix is unremarkable. No significant diverticular disease. CT pelvis: Uterus and adnexal structures appear unremarkable. Urinary bladder is nondistended. No pelvic masses, fluid or adenopathy. Osseous structures reveal no destructive osseous lesions. IMPRESSION: Impression: 1. No acute abnormalities or CT explanation for flank pain.Specifically, no ureteral stones or hydroureteronephrosis. 2. Nonobstructing right renal calculi. This document has been electronically signed by: Elías Chester MD on 10/01/2024 20:09:55 us Fransico FIGUEROA IMG CT PROCEDURES Final Result * Lipase (10/01/2024 5:23 PM EDT) Lipase 60 13 - 75 unit/L LAB CHEMISTRY METHOD 10/01/2024 6:38 PM EDT [facility] Blood Venous blood specimen / Unknown Venipuncture / Unknown 10/01/2024 5:23 PM EDT 10/01/2024 6:01 PM EDT us Fransico FIGUEROA LAB BLOOD ORDERABLES Final Resul t [facility] [address] [place] [address], [place] [phone] * CBC auto differential (10/01/2024 5:23 PM EDT) [facility] WBC 9.2 4.8 - 10.8 K/mcL LAB HEMETOLOGY METHOD 10/01/2024 6:18 PM EDT [facility] RBC 4.20 3.80 - 4.80 M/mcL LAB HEMETOLOGY METHOD 10/01/2024 6:18 PM EDT [facility] Hemoglobin 12.8 11.5 - 16.0 g/dL LAB HEMETOLOGY METHOD 10/01/2024 6:18 PM EDT [facility] Hematocrit 39.3 35.0 - 47.0 % LAB HEMETOLOGY METHOD 10/01/2024 6:18 PM EDT [facility] MCV 94.5 79.0 - 98.0 FL LAB HEMETOLOGY METHOD 10/01/2024 6:18 PM EDT [facility] MCH 30.8 27.0 - 32.0 pcg LAB HEMETOLOGY METHOD 10/01/2024 6:18 PM EDT [facility] MCHC 32.6 32.0 - 37.0 g/dL LAB HEMETOLOGY METHOD 10/01/2024 6:18 PM EDT [facility] RDW 12.5 11.0 - 15.0 % LAB HEMETOLOGY METHOD 10/01/2024 6:18 PM EDT [facility] Platelets 322 130 - 400 K/mcL LAB HEMETOLOGY METHOD 10/01/2024 6:18 PM EDT [facility] MPV 10.2 7.0 - 11.0 FL LAB HEMETOLOGY METHOD 10/01/2024 6:18 PM EDT [facility] NRBC 0.0 <1.0 % LAB HEMETOLOGY METHOD 10/01/2024 6:18 PM EDT [facility] NRBC Absolute 0.00 <0.10 K/mcL LAB HEMETOLOGY METHOD 10/01/2024 6:18 PM EDT [facility] Neutrophils Relative 57.6 % LAB HEMETOLOGY METHOD 10/01/2024 6:18 PM EDT [facility] Lymphocytes Relative 33.6 % LAB HEMETOLOGY METHOD 10/01/2024 6:18 PM [facility] Monocytes Relative 5.0 % LAB HEMETOLOGY METHOD 10/01/2024 6:18 PM [facility] Eosinophils Relative 2.8 % LAB HEMETOLOGY METHOD 10/01/2024 6:18 PM [facility] Basophils Relative 0.8 % LAB HEMETOLOGY METHOD 10/01/2024 6:18 PM [facility] Immature Granulocytes Relative 0.2 % LAB HEMETOLOGY METHOD 10/01/2024 6:18 PM [facility] Neutrophils Absolute 5.29 1.50 - 7.00 K/mcL LAB HEMETOLOGY METHOD 10/01/2024 6:18 PM [facility] Lymphocytes Absolute 3.08 1.00 - 5.00 K/mcL LAB HEMETOLOGY METHOD 10/01/2024 6:18 PM [facility] Monocytes Absolute 0.46 0.20 - 1.00 K/mcL LAB HEMETOLOGY METHOD 10/01/2024 6:18 PM [facility] Eosinophils Absolute 0.26 0.00 - 0.50 K/mcL LAB HEMETOLOGY METHOD 10/01/2024 6:18 PM [facility] Basophils Absolute 0.07 0.00 - 0.20 K/mcL LAB HEMETOLOGY METHOD 10/01/2024 6:18 PM [facility] Immature Granulocytes Absolute 0.02 0.00 - 0.03 K/mcL LAB HEMETOLOGY METHOD 10/01/2024 6:18 PM [facility] Blood Venous blood specimen / Unknown Venipuncture / Unknown 10/01/2024 5:23 PM EDT 10/01/2024 6:01 PM EDT us Rashard Boyd MD LAB BLOOD ORDERABLES Final Resu lt [facility] [address] [place] [address], [place] [phone] * (ABNORMAL) Comprehensive metabolic panel (10/01/2024 5:23 PM EDT) Pathologist [facility] Sodium 139 133 - 145 mmol/L LAB CHEMISTRY METHOD 10/01/2024 6:38 PM EDT [facility] Potassium 4.1 3.5 - 5.5 mmol/L LAB CHEMISTRY METHOD 10/01/2024 6:38 PM [facility] Chloride 106 96 - 110 mmol/L LAB CHEMISTRY METHOD 10/01/2024 6:38 PM T [facility] CO2 25 21 - 32 mmol/L LAB CHEMISTRY METHOD 10/01/2024 6:38 PM EDT [facility] Anion Gap 8 3 - 11 LAB CHEMISTRY METHOD 10/01/2024 6:38 PM [facility] Glucose 92 70 - 100 mg/dL LAB CHEMISTRY METHOD 10/01/2024 6:38 PM [facility] BUN 15 5 - 25 mg/dL LAB CHEMISTRY METHOD 10/01/2024 6:38 PM EDT [facility] Creatinine 0.95 0.50 - 1.10 mg/dL LAB CHEMISTRY METHOD 10/01/2024 6:38 PM [facility] eGFR 69 >=60 mL/min/1. 73m2 LAB CHEMISTRY METHOD 10/01/2024 6:38 PM T [facility] Comment:Calculation based on the??Chronic Kidney Disease Epidemiology Collaboration (CKD-EPI) equation refit??without adjustment for race. BUN/Creatinine Ratio 15.8 LAB CHEMISTRY METHOD 10/01/2024 6:38 PM EDT [facility] Calcium 10.6(H) 8.5 - 10.5 mg/dL LAB CHEMISTRY METHOD 10/01/2024 6:38 PM EDT [facility] AST (SGOT) 24 10 - 42 unit/L LAB CHEMISTRY METHOD 10/01/2024 6:38 PM T [facility] ALT (SGPT) 21 10 - 60 unit/L LAB CHEMISTRY METHOD 10/01/2024 6:38 PM EDT [facility] Alkaline Phosphatase 65 42 - 121 unit/L LAB CHEMISTRY METHOD 10/01/2024 6:38 PM EDT [facility] Total Protein 7.7 6.0 - 8.0 g/dL LAB CHEMISTRY METHOD 10/01/2024 6:38 PM [facility] Albumin 4.9 3.2 - 5.0 g/dL LAB CHEMISTRY METHOD 10/01/2024 6:38 PM T [facility] Total Bilirubin 0.6 0.0 - 1.4 mg/dL LAB CHEMISTRY METHOD 10/01/2024 6:38 PM T [facility] Blood Venous blood specimen / Unknown Venipuncture / Unknown 10/01/2024 5:23 PM EDT 10/01/2024 6:01 PM EDT us Rashard Boyd MD LAB BLOOD ORDERABLES Final Resu lt [facility] [address] [place] [address], * ECG 12 lead (10/01/2024 4:55 PM EDT) Ventricular Rate ECG 57 BPM GEMUSE Atrial Rate 57 BPM GEMUSE P-R Interval 158 ms GEMUSE QRS Duration 92 ms GEMUSE Q-T Interval 448 ms GEMUSE QTc 436 ms GEMUSE P Wave [place] 61 degrees GEMUSE R [place] -32 degrees GEMUSE T [place] 24 degrees GEMUSE ECG Interpretation Sinus bradycardia with sinus arrhythmia Left axis deviation Minimal voltage criteria for LVH, may be normal variant Abnormal ECG When compared with ECG of 15-MAR-2024 14:47, No significant change was found Confirmed by JOSÉ JOE ([id number]) on 10/03/2024 8:48:14 AM GEMUSE 10/01/2024 4:55 PM EDT 10/03/2024 8:48 AM EDT us Fransico FIGUEROA ECG ORDERABLES Final Result Performing Organization Address [facility] Co de Phone Number GEMUSE * Culture urine (10/01/2024 3:55 PM EDT) Pathologist [facility] Culture, Urine <10,000 cfu/ml, insignificant count, no further workup. 10/02/2024 8:23 AM EDT [facility] Urine Urine specimen obtained by clean catch procedure / Unknown Non-blood Collection / Unknown 10/01/2024 3:55 PM EDT 10/01/2024 4:13 PM EDT us Rashard Boyd MD LAB MICROBIOLOGY - GENERAL ORDE RABLES Final Result Performing Organization Address [facility] de Phone Number [facility] [address] [place] [address], [place] [phone] * Ward urine culture tube (10/01/2024 3:55 PM EDT) Extra Tube Hold for add-ons. 10/01/2024 6:02 PM EDT [facility] Comment:Auto resulted. Urine Urine specimen obtained by clean catch procedure / Unknown Non-blood Collection / Unknown 10/01/2024 3:55 PM EDT 10/01/2024 4:07 PM EDT us Rashard Boyd MD LAB URINE ORDERABLES Final Resu lt [facility] [address] [place] [address], [place] [phone] * (ABNORMAL) Urinalysis with reflex microscopic and culture (10/01/2024 3:55 PM EDT) Specific [place] Urine 1.006 1.003 - 1.030 LAB URINALYSIS - AUTOMATED METHOD 10/01/2024 4:13 PM [facility] pH, Urine 6.5 5.0 - 8.0 pH LAB URINALYSIS - AUTOMATED METHOD 10/01/2024 4:13 PM [facility] Leukocytes, Urine Small(A) Negative LAB URINALYSIS - AUTOMATED METHOD 10/01/2024 4:13 PM [facility] Nitrite, Urine Negative Negative LAB URINALYSIS - AUTOMATED METHOD 10/01/2024 4:13 PM [facility] Protein, Urine Negative <=Trace mg/dL LAB URINALYSIS - AUTOMATED METHOD 10/01/2024 4:13 PM [facility] Glucose, Urine Negative Negative mg/dL LAB URINALYSIS - AUTOMATED METHOD 10/01/2024 4:13 PM [facility] Ketones, Urine Negative Negative mg/dL LAB URINALYSIS - AUTOMATED METHOD 10/01/2024 4:13 PM [facility] Urobilinogen, Urine 0.2 0.2 - 1.0 mg/dL LAB URINALYSIS - AUTOMATED METHOD 10/01/2024 4:13 PM [facility] Bilirubin, Urine Negative Negative LAB URINALYSIS - AUTOMATED METHOD 10/01/2024 4:13 PM [facility] Blood, Urine Negative Negative LAB URINALYSIS - AUTOMATED METHOD 10/01/2024 4:13 PM [facility] RBC, Urine 0.5 0 - 4 /HPF LAB URINALYSIS - AUTOMATED METHOD 10/01/2024 4:13 PM EDT [facility] WBC, Urine 3.9 0 - 4 /HPF LAB URINALYSIS - AUTOMATED METHOD 10/01/2024 4:13 PM EDT [facility] Squamous Epithelial, Urine 64(H) 0 - 60 /LPF LAB URINALYSIS - AUTOMATED METHOD 10/01/2024 4:13 PM EDT [facility] Bacteria, Urine Negative Negative /HPF LAB URINALYSIS - AUTOMATED METHOD 10/01/2024 4:13 PM [facility] Hyaline Casts, Urine 1.6 0 - 3 /LPF LAB URINALYSIS - AUTOMATED METHOD 10/01/2024 4:13 PM [facility] Urine Urine specimen obtained by clean catch procedure / Unknown Non-blood Collection / Unknown 10/01/2024 3:55 PM EDT 10/01/2024 4:07 PM EDT us Rashard Boyd MD LAB URINE ORDERABLES Final Resu lt [facility] [address] [place] [address], documented in this encounter Visit Diagnoses Diagnosis Bilateral flank pain- Primary Abdominal pain, unspecified site LUQ pain Abdominal pain, left upper quadrant documented in this encounter Administered Medications Inactive Administered Medications - up to 3 most recent administrations Medication Order MAR Action Action Date Dose Rate Site iopamidoL (ISOVUE-370) 370 mg iodine /mL (76 %) injection 90 mL 90 mL, intravenous, Once in imaging, Starting on Sat10/01/24 at 1957, For 1 dose Given 10/01/2024 7:57 PM EDT 90 mL ondansetron (PF) (ZOFRAN) injection 4 mg 4 mg, intravenous, Once, On Sat10/01/24 at 1746, For 1 dose Given 10/01/2024 5:51 PM EDT 4 mg sodium chloride 0.9 % bolus 1,000 mL 1,000 mL, intravenous, at 2,000 mL/hr, Administer over 30 Minutes, Once, On Nova 10/01/24 at 1746, For 1 dose New Bag 10/01/2024 5:51 PM EDT 1,000 mL 2000 mL/hr sodium chloride 0.9 % flush 10 mL 10 mL, intravenous, Once, On Nova 10/01/24 at 1958, For 1 dose Given 10/01/2024 7:57 PM EDT 10 mL documented in this encounter Active and Recently Administered Medications Times are shown in EDT. Scheduled Medication Order 09/29/2024 09/30/2024 10/01/2024 iopamidoL (ISOVUE-370) 370 mg iodine /mL (76 %) injection 90 mL (COMPLETED) 90 mL, intravenous, Once in imaging, Starting on Nova 10/01/24 at 195, For 1 dose 1956 (Given - Provid er: Carly Barrera) ondansetron (PF) (ZOFRAN) injection 4 mg (COMPLETED) 4 mg, intravenous, Once, On Nova 10/01/24 at 1746, For 1 dose 1750 (Given - Provid er: Francheska Bagley RN) sodium chloride 0.9 % bolus 1,000 mL (COMPLETED) 1,000 mL, intravenous, at 2,000 mL/hr, Administer over 30 Minutes, Once, On Nova 10/01/24 at 1746, For 1 dose 175 (New Bag - Prov ider: Francheska Bagley RN)1909 (Stopped - Provider: Bree Marcum RN) sodium chloride 0.9 % flush 10 mL (COMPLETED) 10 mL, intravenous, Once, On Nova 10/01/24 at 195, For 1 dose 1956 (Given - Provid er: Carly Barrera) documented in this encounter Orders IV Count Last Ordered Date First Orde red Date INSERT PERIPHERAL IV 1 10/01/2024 documented in this encounter Care Teams [employer] Operator Relationship Specialty Start Date End Date Melisa Jensen MD [address] [place] [address] [phone] PCP - General Internal Medicine 10/01/24 documented as of this encounter
--- OUTSIDE RECORDS SUMMARY | 2024-10-06 17:11 | XMS_ITS | Clinical Summary ---
Author Organization 175 [facility] Address [address] [place] [address] Phone Care Team Providers Care Foot Cutter Name Role Phone Melisa Jensen MD Primary Care Provider [phone] Allergies Active Allergy Reactions Criticality Noted Date Comments Bee Venom Protein (Honey Bee) Anaphylaxis High 05/08 Medications cetirizine (ZyrTEC) 10 mg tablet Take 1 Tablet by mouth daily. Active EPINEPHrine (EpiPen 2-Alek) 0.3 mg/0.3 mL injection Inject as directed as needed. Active fluticasone propionate (FLONASE NASL) by Nasal route. Active omeprazole (PriLOSEC) [address] capsule Take 40 mg by mouth daily. Active pravastatin (PRAVACHOL) 40 mg tablet Take 40 mg by mouth daily. Active tiZANidine (ZANAFLEX) 4 mg tablet Take 1 tablet (4 mg total) by mouth 1 (one) time each day. 03/20/2024 Active fluticasone-rickie meterol (Wixela Inhub) 250-50 mcg/dose diskus inhaler Inhale by mouth. 02/17/2024 Active albuterol HFA (PROAIR HFA ; PROVENTIL HFA ; VENTOLIN HFA) 90 mcg/actuation inhaler Inhale 2 puffs by mouth every 6 (six) hours. 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 Reyes is about 18 months status post C4-5 and C5-6 anterior cervical discectomy and fusion with plating. She was doing very well until recently when she developed some pain on the right side of her neck and into the right trapezius. Does not go into the arms. It is affected by the position that she sleeps and at night. She had some leftover tizanidine from over a year ago and it did seem to help. I reviewed x-rays of the cervical spine today taken at [facility] and it shows good position of her hardware. I question whether there is a pseudoarthrosis at C5-6. The fusion at C4-5 looks robust. I will give Ms. Reyes a prescription for tizanidine. I told her I review her films with Dr. Hayward when she returns and get back in touch with her. She will call me if things are getting worse. Assessment & Plan (05/08/2024 4:11 PM EST): At this point, I am more concerned that she may have a cervical radiculopathy from adjacent segment disease at C6-7 and plan to order a new cervical spine MRI. She can continue her current regimen adding heat or ice as necessary in the meantime. Neck pain 05/03/2022 Neck pain on left side 05/01/2022 Overview (05/06/2024): Last Assessment & Plan: Ms. Reyes was here for her second postop visit since a C4-5, C5-6 ACDF with plating on 07/05/2022. Since her surgery, she no longer has the incapacitating left upper cervical/retroauricular pain and is quite pleased. She has some discomfort in the left lower paraspinal area but, this is not worsened by activity. She denies limitations in mobility or use of her hands and states that she feels quite well. On exam, her incision is well-healed, the spine is nontender to palpation, cervical rotation is nearly 75 degrees, strength 5/5, sensation to light touch intact, gait is steady. Review of the AP/lateral and flexion/extension x-rays from today show the grafts plate and all screws to be in good position without instability at any level. Ms. Reyes is doing quite well and has no restrictions on her activities. We will plan on seeing her back at 1 year from surgery with x-rays to assess the fusion though she is welcome to contact us at any time if she has concerns. Depression 10/30/2017 GERD (gastroesophageal reflux disease) 8 Overview (05/06/2024): Hx Colon's esophagus Anemia 06/12/2017 Hyperlipidemia 06/12/2017 Vitamin D deficiency 10/17/2016 Anxiety 09/18/2016 DDD (degenerative disc disease), thoracic 2015 Allergic rhinitis 10/18/2015 Encounters Date Type Department Care Team Description 10/01/2024 5:11 PM EDT - 10/01/2024 9:29 PM EDT Emergency [facility] Emergency [address] [place] [address] Bilateral flank pain (Primary Dx); LUQ pain Discharge Disposition: Home or Self Care 09/17/2024 Telephone Neurosurgery [facility] [address] [address] Joann Myers PA 08/17/2024 Telephone Neurosurgery [facility] [address] [address] Kirstie Kramer MA from Last 3 Months Immunizations Name Administration Dates Next Due Influenza trivalent, 0.5mL, preservative free (Fluarix; FluLaval; Fluzone) ages 6mo and older (Afluria) 3 years and older 03/29/2022,04/08/2021 Tdap Tetanus diptheria acell ular pertussis (Boostrix; Adacel) 7yo and older 04/23/2014 Surgical History Surgery Date Site/Laterality Comments TONSILLECTOMY TUBAL LIGATION ENDOMETRIAL ABLATION OTHER SURGICAL HISTORY THYROIDECTOMY TOTAL/SUBTOTAL RAD NECK DISSECT BREAST REDUCTION Bilateral NECK SURGERY 07/05/2022 C4-5, C5-6 ACDF with plating, Dr. 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 Arthritis DX:Arthritis Colon polyps DX:Colon polyps; COMMENT: due 2017 for repeat colonoscopy and for endoscopy Allergic rhinitis 10/18/2015 DX:Allergic rh initis Anemia 06/12/2017 DX:Anemia Anxiety 09/18/2016 DX:Anxiety DDD (degenerative disc disea se), thoracic 03/20/2016 DX:DDD (degenerative disc di sease), thoracic Depression 10/30/2017 DX:Depression Hyperlipidemia 06/12/2017 DX:Hyperlipidemi a Vitamin D deficiency 10/17/2016 DX:Vitamin D deficiency History of thyroid nodule DX:His tory of thyroid nodule; COMMENT: removed Family History Medical History Relation Name Comments No Known Problems Father No Known Problems Mother Relation Name Status Comments Father Mother Alive Social History Tobacco Use Types Packs/Day Years [...] Orientation Straight 10/01/2024 5: 18 PM EDT Obstetrics History Last Filed Vital Signs Vital Sign Reading [...] Mass Index 21.97 10/01/2024 2:30 PM EDT Plan of Treatment Health Maintenance Due Date Last Done Comments Breast Cancer Screening 1965 Pneumococcal Vaccine: 50+ Years (1 of 1 - PCV) 2014 Zoster Vaccines (1 of 2) 2014 Cervical Cancer Screening: P ap Smear 10/18/2019 10/17/2016, 10/17/2016 Colorectal Cancer Screening: Colonoscopy 06/06/2022 Depression Screening 06/06/2022 HIV Screening 06/06/2022 Hepatitis C Screening 06/06/2022 Social Influencers of Health Screening 06/06/2022 Cholesterol Screening (Lipid Panel) 05/08/2023 05/08/2018 COVID-19 Vaccine (3 - 2023-2 5 season) 2024 06/06/2021, 11/11/2020 DTaP,Tdap,and Td Vaccines (2 - Td or Tdap) 04/23/2024 04/23/2014 Influenza Vaccine (Season Ended) 2025 03/29/2022, 04/08/2021, 07/08/2019 RSV Immunization Adult Patients (1 - 1-dose 75+ series) 2039 HIB Vaccines Aged Out No longer eligi ble based on patient's age to complete this topic HPV Vaccines Aged Out No longer eligi ble based on patient's age to complete this topic Hepatitis A Vaccines Aged Out No long er eligible based on patient's age to complete this topic Hepatitis B Vaccines Aged Out No long er eligible based on patient's age to complete this topic IPV Vaccines Aged Out No longer eligi ble based on patient's age to complete this topic MMR Vaccines Aged Out No longer eligi ble based on patient's age to complete this topic Meningococcal ACWY Vaccine Aged Out N o longer eligible based on patient's age to complete this topic Meningococcal B Vaccine Aged Out No l onger eligible based on patient's age to complete this topic Pneumococcal Vaccine: Pediatrics (0 to 5 Years) and At-Risk Patients (6 to 64 Years) Aged Out No longer eligible b ased on patient's age to complete this topic RSV Immunization Patients Under 20 months Aged Out No longer eligible b ased on patient's age to complete this topic Varicella Vaccines Aged Out No longer eligible based on patient's age to complete this topic Procedures Procedure Name Priority Date/Time Associated Diagnosis Comments ECG ANNOTATED 10/02/2024 CT ABDOMEN PELVIS W CONTRAST STAT 10/01/2024 7:58 PM EDT LIPASE STAT Add-on 10/01/2024 5:23 PM EDT CBC WITH AUTO DIFFERENTIAL STAT 10/01/2024 5:23 PM EDT COMPREHENSIVE METABOLIC PANEL STAT 10/01/2024 5:23 PM EDT CBC AND DIFFERENTIAL STAT 10/01/2024 5:23 PM EDT ECG 12-LEAD STAT 10/01/2024 4:55 PM EDT WARD URINE CULTURE TUBE STAT 10/01/2024 3:55 PM EDT URINALYSIS WITH REFLEX MICROSCOPIC AND CULTURE STAT 10/01/2024 3:55 PM EDT URINALYSIS WITH REFLEX MICROSCOPIC AND CULTURE STAT 10/01/2024 3:55 PM EDT CULTURE URINE STAT 10/01/2024 3:55 PM EDT LIPID PANEL Routine 05/08/2018 HM HPV Routine 10/17/2016 from Last 3 Months or Most Recently Relevant to Health Maintenance Results * ECG-Annotated (10/02/2024) us Provider Onbase ECG ORDERABLES Final Result * CT Abdomen [...] by: Elías Chester MD on 10/01/2024 20:09:[address] PROCEDURES Final Result * CBC auto differential (10/01/2024 5:23 PM EDT) WBC 9.2 4.8 - 10.8 K/mcL LAB HEMETOLOGY METHOD 10/01/2024 6:18 PM EDT [facility] RBC 4.20 3.80 - 4.80 M/mcL LAB HEMETOLOGY METHOD 10/01/2024 6:18 PM EDT [facility] Hemoglobin 12.8 11.5 - 16.0 g/dL LAB HEMETOLOGY METHOD 10/01/2024 6:18 PM EDT [facility] Hematocrit 39.3 35.0 - 47.0 % LAB HEMETOLOGY METHOD 10/01/2024 6:18 PM EDT [facility] MCV 94.5 79.0 - 98.0 FL LAB HEMETOLOGY METHOD 10/01/2024 6:18 PM EDT [facility] MCH 30.8 27.0 - 32.0 pcg LAB HEMETOLOGY METHOD 10/01/2024 6:18 PM EDT [facility] MCHC 32.6 32.0 - 37.0 g/dL LAB HEMETOLOGY METHOD 10/01/2024 6:18 PM EDT [facility] RDW 12.5 11.0 - 15.0 % LAB HEMETOLOGY METHOD 10/01/2024 6:18 PM EDT [facility] Platelets 322 130 - 400 K/mcL LAB HEMETOLOGY METHOD [facility] MPV 10.2 7.0 - 11.0 FL LAB HEMETOLOGY METHOD 10/01/2024 6:18 PM EDT [facility] NRBC 0.0 <1.0 % LAB HEMETOLOGY METHOD 10/01[facility]2024 6[facility] NRBC Absolute 0.00 <0.10 K/mcL LAB HEMETOLOGY METHOD 10/01/2024 6:18 PM [facility] Neutrophils Relative 57.6 % LAB HEMETOLOGY METHOD 10/01/2024 6[facility] Lymphocytes Relative 33.6 % LAB HEMETOLOGY METHOD 10/01/2024 6:18 PM [facility] Monocytes Relative 5.0 % LAB HEMETOLOGY METHOD 10/01/2024 6:18 PM [facility] Eosinophils Relative 2.8 % LAB HEMETOLOGY METHOD 10/01/2024 6:18 PM [facility] Basophils Relative 0.8 % LAB HEMETOLOGY METHOD 10/01/2024 6:18 PM [facility] Immature Granulocytes Relative 0.2 % LAB HEMETOLOGY METHOD 10/01/2024 6:[facility] Neutrophils Absolute 5.29 1.50 - 7.00 K/mcL LAB HEMETOLOGY METHOD 10/01/2024 6:[facility] Lymphocytes Absolute 3.08 1.00 - 5.00 K/mcL LAB HEMETOLOGY METHOD 10/01/2024 6:18 PM EDT [facility] Monocytes Absolute 0.46 0.20 - 1.00 K/[facility] LAB HEMETOLOGY METHOD 10/01/2024 6:18 PM EDT [facility] Eosinophils Absolute 0.26 0.00 - 0.50 K/[facility] LAB HEMETOLOGY METHOD 10/01/2024 6:18 PM EDT [facility] Basophils Absolute 0.07 0.00 - 0.20 K/[facility] LAB HEMETOLOGY METHOD 10/01/2024 6:18 PM EDT [facility] Immature Granulocytes Absolute 0.02 0.00 - 0.03 K/[facility] LAB HEMETOLOGY METHOD 10/01/2024 6:18 PM EDT [facility] Blood Venous blood specimen / Unknown Venipuncture / Unknown 10/01/2024 5:23 PM EDT 10/01/2024 6:01 PM EDT us Rashard Boyd MD LAB BLOOD ORDERABLES Final Resu lt [facility] [address] [place] [address], [place] [phone] * Lipase (10/01/2024 5:23 PM EDT) Lipase 60 13 - 75 unit/L LAB CHEMISTRY METHOD 10/01/2024 6:38 PM EDT [facility] Blood Venous blood specimen / Unknown Venipuncture / Unknown 10/01/2024 5:23 PM EDT 10/01/2024 6:01 PM EDT us Fransico FIGUEROA LAB BLOOD ORDERABLES Final Resul t Performing Organization Address City/[facility]/ZIP Co de Phone Number [facility] [address] [place] [address], [place] [phone] * (ABNORMAL) Comprehensive metabolic panel (10/01/2024 5:23 PM EDT) Sodium 139 133 - 145 mmol/L LAB CHEMISTRY METHOD 10/01/2024 6:38 PM [facility] Potassium 4.1 3.5 - 5.5 mmol/L LAB CHEMISTRY METHOD 10/01/2024 6:38 PM [facility] Chloride 106 96 - 110 mmol/L LAB CHEMISTRY METHOD 10/01/2024 6:38 PM [facility] CO2 25 21 - 32 mmol/L LAB CHEMISTRY METHOD 10/01/2024 6:38 PM [facility] Anion Gap 8 3 - 11 LAB CHEMISTRY METHOD 10/01/2024 6:38 PM [facility] Glucose 92 70 - 100 mg/dL LAB CHEMISTRY METHOD 10/01/2024 6:38 PM [facility] BUN 15 5 - 25 mg/dL LAB CHEMISTRY METHOD 10/01/2024 6:38 PM [facility] Creatinine 0.95 0.50 - 1.10 mg/dL LAB CHEMISTRY METHOD 10/01/2024 6:38 PM [facility] eGFR 69 >=60 mL/min/1. 73m2 LAB CHEMISTRY METHOD 10/01/2024 6:38 PM [facility] Comment:Calculation based on the??Chronic Kidney Disease Epidemiology Collaboration (CKD-EPI) equation refit??without adjustment for race. BUN/Creatinine Ratio 15.8 LAB CHEMISTRY METHOD 10/01/2024 6:38 PM [facility] Calcium 10.6(H) 8.5 - 10.5 mg/dL LAB CHEMISTRY METHOD 10/01/2024 6:38 PM [facility] AST (SGOT) 24 10 - 42 unit/L LAB CHEMISTRY METHOD 10/01/2024 6:38 PM [facility] ALT (SGPT) 21 10 - 60 unit/L LAB CHEMISTRY METHOD 10/01/2024 6:38 PM EDT [facility] Alkaline Phosphatase 65 42 - 121 unit/L LAB CHEMISTRY METHOD 10/01/2024 6:38 PM EDT [facility] Total Protein 7.7 6.0 - 8.0 g/dL LAB CHEMISTRY METHOD 10/01/2024 6:38 PM EDT [facility] Albumin 4.9 3.2 - 5.0 g/dL LAB CHEMISTRY METHOD 10/01/2024 6:38 PM EDT [facility] Total Bilirubin 0.6 0.0 - 1.4 mg/dL LAB CHEMISTRY METHOD 10/01/2024 6:38 PM EDT [facility] Blood Venous blood specimen / Unknown Venipuncture / Unknown 10/01/2024 5:23 PM EDT 10/01/2024 6:01 PM EDT Rashard Boyd MD LAB BLOOD ORDERABLES Final Resu lt [facility] [address] [place] [address], * ECG 12 lead (10/01/2024 4:55 PM EDT) Ventricular Rate ECG 57 BPM GEMUSE Atrial Rate 57 BPM GEMUSE P-R Interval 158 ms GEMUSE QRS Duration 92 ms GEMUSE Q-T Interval 448 ms GEMUSE QTc 436 ms GEMUSE P Wave Clark 61 degrees GEMUSE R Clark -32 degrees GEMUSE T Clark 24 degrees GEMUSE ECG Interpretation Sinus bradycardia with sinus arrhythmia Left axis deviation Minimal voltage criteria for LVH, may be normal variant Abnormal ECG When compared with ECG of 15-MAR-2024 14:47, No significant change was found Confirmed by JOSÉ JOE ([id number]) on 10/03/2024 8:48:14 AM GEMUSE 10/01/2024 4:55 PM EDT 10/03/2024 8:48 AM EDT Fransico FIGUEROA ECG ORDERABLES Final Result PADMINI * (ABNORMAL) Urinalysis with reflex microscopic and culture (10/01/2024 3:55 PM EDT) Specific [place] Urine 1.006 1.003 - 1.030 LAB URINALYSIS - AUTOMATED METHOD 10/01/2024 4:13 PM [facility] pH, Urine 6.5 5.0 - 8.0 pH LAB URINALYSIS - AUTOMATED METHOD 10/01/2024 4:13 PM [facility] Leukocytes, Urine Small(A) Negative LAB URINALYSIS - AUTOMATED METHOD 10/01/2024 4:13 PM [facility] Nitrite, Urine Negative Negative LAB URINALYSIS - AUTOMATED METHOD 10/01/2024 4:13 PM [facility] Protein, Urine Negative <=Trace mg/dL LAB URINALYSIS - AUTOMATED METHOD 10/01/2024 4:13 PM [facility] Glucose, Urine Negative Negative mg/dL LAB URINALYSIS - AUTOMATED METHOD 10/01/2024 4:13 PM [facility] Ketones, Urine Negative Negative mg/dL LAB URINALYSIS - AUTOMATED METHOD 10/01/2024 4:13 PM [facility] Urobilinogen, Urine 0.2 0.2 - 1.0 mg/dL LAB URINALYSIS - AUTOMATED METHOD 10/01/2024 4:13 PM [facility] Bilirubin, Urine Negative Negative LAB URINALYSIS - AUTOMATED METHOD 10/01/2024 4:13 PM [facility] Blood, Urine Negative Negative LAB URINALYSIS - AUTOMATED METHOD 10/01/2024 4:13 PM [facility] RBC, Urine 0.5 0 - 4 /HPF LAB URINALYSIS - AUTOMATED METHOD 10/01/2024 4:13 PM EDT [facility] WBC, Urine 3.9 0 - 4 /HPF LAB URINALYSIS - AUTOMATED METHOD 10/01/2024 4:13 PM EDT [facility] Squamous Epithelial, Urine 64(H) 0 - 60 /LPF LAB URINALYSIS - AUTOMATED METHOD 10/01/2024 4:13 PM EDT [facility] Bacteria, Urine Negative Negative /HPF LAB URINALYSIS - AUTOMATED METHOD 10/01/2024 4:13 PM EDT [facility] Hyaline Casts, Urine 1.6 0 - 3 /LPF LAB URINALYSIS - AUTOMATED METHOD 10/01/2024 4:13 PM EDT [facility] Urine Urine specimen obtained by clean catch procedure / Unknown Non-blood Collection / Unknown 10/01/2024 3:55 PM EDT 10/01/2024 4:07 PM EDT us Rashard Boyd MD LAB URINE ORDERABLES Final Resu lt Performing Organization Address [facility]/ZIP Co de Phone Number [facility] [address] [place] [address], [place] [phone] * Ward urine culture tube (10/01/2024 3:55 PM EDT) Extra Tube Hold for add-ons. 10/01/2024 6:02 PM EDT [facility] Comment:Auto resulted. Urine Urine specimen obtained by clean catch procedure / Unknown Non-blood Collection / Unknown 10/01/2024 3:55 PM EDT 10/01/2024 4:07 PM EDT us Rashard Boyd MD LAB URINE ORDERABLES Final Resu lt Performing Organization Address [facility]/ZIP Co de Phone Number [facility] [address] [place] [address], [place] [phone] * Culture urine (10/01/2024 3:55 PM EDT) Pathologist [facility] Culture, Urine <10,000 cfu/ml, insignificant count, no further workup. 10/02/2024 8:23 AM EDT [facility] Urine Urine specimen obtained by clean catch procedure / Unknown Non-blood Collection / Unknown 10/01/2024 3:55 PM EDT 10/01/2024 4:13 PM EDT Rashard Boyd MD LAB MICROBIOLOGY - GENERAL CAR [place] Final Result [facility] [address] [place] [address], * (ABNORMAL) Lipid panel (05/08/2018) [facility] LDL/HDL Ratio 5(A) 0 - 4 Triglycerides 254(A) 0 - 150 mg/dL Cholesterol 255(A) 0 - 200 mg/dL HDL 53 >=40 mg/dL LDL Cholesterol 152(A) 0 - 100 mg/dL Blood Venous blood specimen / Unknown Historical Provider LAB BLOOD ORDERABLES Naomi l Result * Cervical Cancer Screening: HPV (10/17/2016) [facility] Cervical Cancer Screening: HPV Abstracted, Negative Historical Provider HEALTH MAINTENANCE Final Result from Last 3 Months or Most Recently Relevant to Health Maintenance Insurance [facility] [facility] Advance Directives Documents on File Type Date Recorded Patient Records Management Director Expl anation Health Care Decision (hx) 07/20/2014 AD DEL TORO DIRECTIVE Health Care Decision (hx) 07/20/2014 AD DEL TORO DIRECTIVE Health Care Decision (hx) 07/20/2014 AD DEL TORO DIRECTIVE Health Care Decision (hx) 07/20/2014 AD DEL TORO DIRECTIVE Health Care Decision (hx) 07/20/2014 AD DEL TORO DIRECTIVE Health Care Decision (hx) 07/20/2014 AD DEL TORO DIRECTIVE Health Care Decision (hx) 07/20/2014 AD DEL TORO DIRECTIVE Health Care Decision (hx) 07/20/2014 AD DEL TORO DIRECTIVE Health Care Decision (hx) 07/20/2014 AD DEL TORO DIRECTIVE Health Care Decision (hx) 07/20/2014 AD DEL TORO DIRECTIVE Health Care Decision (hx) 07/16/2014 AD DEL TORO DIRECTIVE Health Care Decision (hx) 07/16/2014 AD DEL TORO DIRECTIVE Health Care Decision (hx) 07/16/2014 AD DEL TORO DIRECTIVE Health Care Decision (hx) 07/16/2014 AD DEL TORO DIRECTIVE Health Care Decision (hx) 07/16/2014 AD DEL TORO DIRECTIVE Health Care Decision (hx) 07/16/2014 AD DEL TORO DIRECTIVE Health Care Decision (hx) 07/16/2014 AD DEL TORO DIRECTIVE Health Care Decision (hx) 07/16/2014 AD DEL TORO DIRECTIVE Health Care Decision (hx) 07/16/2014 AD DEL TORO DIRECTIVE Health Care Decision (hx) 07/16/2014 AD DEL TORO DIRECTIVE Health Care Decision (hx) 07/09/2014 AD DEL TORO DIRECTIVE Health Care Decision (hx) 07/09/2014 AD DEL TORO DIRECTIVE Health Care Decision (hx) 07/09/2014 AD DEL TORO DIRECTIVE Health Care Decision (hx) 07/09/2014 AD DEL TORO DIRECTIVE Health Care Decision (hx) 07/09/2014 AD DEL TORO DIRECTIVE Health Care Decision (hx) 07/09/2014 AD DEL TORO DIRECTIVE Health Care Decision (hx) 07/09/2014 AD DEL TORO DIRECTIVE Health Care Decision (hx) 07/09/2014 AD DEL TORO DIRECTIVE Health Care Decision (hx) 07/09/2014 AD DEL TORO DIRECTIVE Health Care Decision (hx) 07/09/2014 AD DEL TORO DIRECTIVE Care Teams Foot Cutter Relationship Specialty Start Date End Date Melisa Jensen MD [address] [place] [phone] PCP - General Internal Medicine 10/01/24
== END 2024-10-06 16:48 | disposition home or self-care (01) ==
PROVIDERS: Emergency Provider Emergency Medicine
DX: S13.4XXA Sprain of ligaments of cervical spine, initial encounter (principal); S22.32XA Fracture of one rib, left side, initial encounter for closed fracture; V53.5XXA Driver of pick-up truck or van injured in collision with car, pick-up truck or van in traffic accident, initial encounter; Y93.9 Activity, unspecified; Y92.410 Unspecified street and highway as the place of occurrence of the external cause; Y99.9 Unspecified external cause status
CPT/HCPCS: 71101; 72125; 73030; 99284

== ENCOUNTER → 2024-10-06 13:47 | Outpatient (BNV) | payer OTHER, SELFPAY | PROVIDERS: Emergency Provider Emergency Medicine; Visit Provider Radiology Diagnostic Radiology | DX: M47.812 Spondylosis without myelopathy or radiculopathy, cervical region (principal); M43.22 Fusion of spine, cervical region; R07.89 Other chest pain; M25.512 Pain in left shoulder; V89.0XXA Person injured in unspecified motor-vehicle accident, nontraffic, initial encounter | CPT/HCPCS: 71101; 72125; 73030 ==

== ENCOUNTER 2024-10-29 08:42 | Outpatient (REF) | payer OTHER, SELFPAY ==
--- NOTE | ~2024-10-29 | XR_ITS ---
EXAMINATION: XR SHOULDER, RIGHT CLINICAL INFORMATION: M25.511 - Pain in right shoulder COMPARISON: None available. TECHNIQUE: AP external rotation, Grashey, scapular Y, and axillary views of the right shoulder. FINDINGS: Subchondral cyst formation along the articular surface of the acromioclavicular joint and the greater tuberosity of the right humerus. No acute cortical disruption or malalignment. Calcified plaque aortic arch. Metallic plate lower cervical spine probably 3 levels. No fully included in the [id number]. XR/XR shoulder RT min 2V IMPRESSION: Degenerative changes, acromioclavicular joint and greater tuberosity, right humerus. Electronically signed by: Valeriano Garland MD 10/29/2024 09:09 AM EDT
--- OUTSIDE RECORDS SUMMARY | 2024-11-03 09:04 | XMS_ITS | Clinical Summary ---
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 Drilling Machine Runner Name Role Phone Melisa Jensen MD Primary Care Provider [phone] Allergies Active Allergy Reactions Criticality Noted Date [...] of the cervical spine today taken at [facility] and it shows good position of [...] Description 10/12/2024 1:45 PM EDT Office Visit [facility] 175 [facility] [address] [place] [phone] Sangeeta Hayward MD Neck pain on left side (Primary Dx) 10/01/2024 5:11 PM EDT - 10/01/2024 9:29 PM EDT Emergency [facility] Emergency [address] [place] [phone] Bilateral flank pain (Primary Dx); LUQ pain Discharge Disposition: Home or Self Care 09/17/2024 Telephone [facility] [address] [phone] Joann Myers PA 08/17/2024 Telephone [facility] [address] [phone] Kirstie Kramer MA from Last [...] pcg LAB HEMETOLOGY METHOD 10/01/2024 6:18 PM [facility] MCHC 32.6 32.0 - 37.0 g/dL LAB HEMETOLOGY METHOD 10/01/2024 6:18 PM [facility] RDW 12.5 11.0 - 15.0 % LAB HEMETOLOGY METHOD 10/01/2024 6:18 PM [facility] Platelets 322 130 - 400 K/mcL LAB HEMETOLOGY METHOD 10/01/2024 6:18 PM EDT [facility] MPV 10.2 7.0 - 11.0 FL LAB [facility]ETOLOGY [facility] NRBC 0.0 <1.0 % LAB HEMETOLOGY [facility] NRBC Absolute 0.00 <0.10 K/mcL LAB HEMETOLOGY METHOD [facility] Neutrophils Relative 57.6 % LAB HEMETOLOGY METHOD 10/01/2024 6:18 PM [facility] Lymphocytes Relative 33.6 % LAB HEMETOLOGY METHOD 10/01/2024 6:18 PM [facility] Monocytes Relative 5.0 % LAB HEMETOLOGY METHOD 10/01/2024 6:18 PM [facility] Eosinophils Relative 2.8 % LAB HEMETOLOGY METHOD 10/01/2024 6:18 PM [facility] Basophils Relative 0.8 % LAB HEMETOLOGY METHOD 10/01/2024 6:18 PM [facility] Immature Granulocytes Relative 0.2 % LAB HEMETOLOGY METHOD 10/01/2024 6:18 PM [facility] Neutrophils Absolute 5.29 1.50 - 7.00 K/mcL LAB HEMETOLOGY METHOD 10/01/2024 6:18 PM [facility] Lymphocytes Absolute 3.08 1.00 - 5.00 K/mcL LAB HEMETOLOGY METHOD 10/01/2024 6:18 PM [facility] Monocytes Absolute 0.46 0.20 - 1.00 K/mcL LAB HEMETOLOGY METHOD 10/01/2024 6:18 PM [facility] Eosinophils Absolute 0.26 0.00 - 0.50 K/mcL LAB HEMETOLOGY METHOD 10/01/2024 6:18 PM EDT [facility] Basophils Absolute 0.07 0.00 - 0.20 K/[facility] LAB HEMETOLOGY METHOD 10/01/2024 6:18 PM EDT [facility] Immature Granulocytes Absolute 0.02 0.00 - 0.03 K/[facility] LAB HEMETOLOGY METHOD 10/01/2024 6:18 PM EDT [facility] Blood Venous blood specimen / Unknown Venipuncture / Unknown 10/01/2024 5:23 PM EDT 10/01/2024 6:01 PM EDT Rashard Boyd MD LAB BLOOD ORDERABLES Final Resu lt Performing Organization Address [facility]/ZIP Co de Phone Number [facility] [address] [place] [address], [place] [phone] * Lipase (10/01/2024 5:23 PM EDT) Lipase 60 13 - 75 unit/L LAB CHEMISTRY METHOD 10/01/2024 6:38 PM EDT [facility] Blood Venous blood specimen / Unknown Venipuncture / Unknown 10/01/2024 5:23 PM EDT 10/01/2024 6:01 PM EDT Fransico FIGUEROA LAB BLOOD ORDERABLES Final Resul t Performing Organization Address City/[facility]/ZIP Co de Phone Number [facility] [address] [place] [address], [place] [phone] * (ABNORMAL) Comprehensive metabolic panel (10/01/2024 5:23 PM EDT) Sodium 139 133 - 145 mmol/L LAB CHEMISTRY METHOD 10/01/2024 6:38 PM EDT [facility] Potassium 4.1 3.5 - 5.5 mmol/L LAB CHEMISTRY METHOD 10/01/2024 6:38 PM [facility] Chloride 106 96 - 110 mmol/L LAB CHEMISTRY METHOD 10/01/2024 6:38 PM [facility] CO2 25 21 - 32 mmol/L LAB CHEMISTRY METHOD 10/01/2024 6:38 PM [facility] Anion Gap 8 3 - 11 LAB CHEMISTRY METHOD 10/01/2024 6:38 PM [facility] Glucose 92 70 - 100 mg/dL LAB CHEMISTRY METHOD 10/01/2024 6:38 PM [facility] BUN 15 5 - 25 mg/dL LAB CHEMISTRY METHOD 10/01/2024 6:38 PM [facility] Creatinine 0.95 0.50 - 1.10 mg/dL LAB CHEMISTRY METHOD 10/01/2024 6:38 PM [facility] eGFR 69 >=60 mL/min/1. 73m2 LAB CHEMISTRY METHOD 10/01/2024 6:38 PM [facility] Comment:Calculation based on the??Chronic Kidney Disease Epidemiology Collaboration (CKD-EPI) equation refit??without adjustment for race. BUN/Creatinine Ratio 15.8 LAB CHEMISTRY METHOD 10/01/2024 6:38 PM [facility] Calcium 10.6(H) 8.5 - 10.5 mg/dL LAB CHEMISTRY METHOD 10/01/2024 6:38 PM [facility] AST (SGOT) 24 10 - 42 unit/L LAB CHEMISTRY METHOD 10/01/2024 6:38 PM [facility] ALT (SGPT) 21 10 - 60 unit/L LAB CHEMISTRY METHOD 10/01/2024 6:38 PM [facility] Alkaline Phosphatase 65 42 - 121 unit/L LAB CHEMISTRY METHOD 10/01/2024 6:38 PM [facility] Total Protein 7.7 6.0 [...] Final Resu lt [facility] [address] [place] [address], [place] [phone] * ECG 12 lead (10/01/2024 4:55 PM EDT) Pathologist [facility] Ventricular Rate ECG 57 BPM GEMUSE Atrial Rate 57 BPM GEMUSE P-R Interval 158 ms GEMUSE QRS Duration 92 ms GEMUSE Q-T Interval 448 ms GEMUSE QTc 436 ms GEMUSE P Wave [place] 61 degrees GEMUSE R [place] -32 degrees GEMUSE T [place] 24 degrees GEMUSE ECG Interpretation Sinus bradycardia with sinus arrhythmia Left axis deviation Minimal voltage criteria for LVH, may be normal variant Abnormal ECG When compared with ECG of 15-MAR-2024 14:47, No significant change was found Confirmed by JOSÉ JOE ([id number]) on 10/03/2024 8:48:14 AM GEMUSE 10/01/2024 4:55 PM EDT 10/03/2024 8:48 AM EDT Fransico FIGUEROA ECG ORDERABLES Final Result Performing Organization Address City/[facility]/ZIP Co de Phone Number GEMUSE * (ABNORMAL) Urinalysis with reflex microscopic and culture (10/01/2024 3:55 PM EDT) Pathologist [facility] Specific [place] Urine 1.006 1.003 - 1.030 LAB URINALYSIS - AUTOMATED METHOD 10/01/2024 4:13 PM [facility] pH, Urine 6.5 5.0 - 8.0 pH LAB URINALYSIS - AUTOMATED METHOD 10/01/2024 4:13 PM [facility] Leukocytes, Urine Small(A) Negative LAB URINALYSIS - AUTOMATED METHOD 10/01/2024 4:13 PM [facility] Nitrite, Urine Negative Negative LAB URINALYSIS - AUTOMATED METHOD 10/01/2024 4:13 PM [facility] Protein, Urine Negative <=Trace mg/dL LAB URINALYSIS - AUTOMATED METHOD 10/01/2024 4:13 PM [facility] Glucose, Urine Negative Negative mg/dL LAB URINALYSIS - AUTOMATED METHOD 10/01/2024 4:13 PM [facility] Ketones, Urine Negative Negative mg/dL LAB URINALYSIS - AUTOMATED METHOD 10/01/2024 4:13 PM [facility] Urobilinogen, Urine 0.2 0.2 - 1.0 mg/dL LAB URINALYSIS - AUTOMATED METHOD 10/01/2024 4:13 PM [facility] Bilirubin, Urine Negative Negative LAB URINALYSIS - AUTOMATED METHOD 10/01/2024 4:13 PM [facility] Blood, Urine Negative Negative LAB URINALYSIS - AUTOMATED METHOD 10/01/2024 4:13 PM [facility] RBC, Urine 0.5 0 - 4 /HPF LAB URINALYSIS - AUTOMATED METHOD 10/01/2024 4:13 PM [facility] WBC, Urine 3.9 0 - 4 /HPF LAB URINALYSIS - AUTOMATED METHOD 10/01/2024 4:13 PM [facility] Squamous Epithelial, Urine 64(H) [...] ORDERABLES Final Resu lt Performing Organization Address [facility]/ZIP Co de Phone Number [facility] [address] [place] [address], [place] [phone] * Ward urine culture tube (10/01/2024 3:55 PM EDT) Extra Tube Hold for add-ons. 10/01/2024 6:02 PM EDT [facility] Comment:Auto resulted. Urine Urine specimen obtained by clean catch procedure / Unknown Non-blood Collection / Unknown 10/01/2024 3:55 PM EDT 10/01/2024 4:07 PM EDT us Rashard Boyd MD LAB URINE ORDERABLES Final Resu lt [facility] [address] [place] [address], [place] [phone] * Culture urine (10/01/2024 3:55 PM EDT) Culture, Urine <10,000 cfu/ml, insignificant count, no further workup. 10/02/2024 8:23 AM EDT [facility] Urine Urine specimen obtained by clean catch procedure / Unknown Non-blood Collection / Unknown 10/01/2024 3:55 PM EDT 10/01/2024 4:13 PM EDT Rashard Boyd MD LAB MICROBIOLOGY - GENERAL CAR [place] Final Result [facility] [address] [place] [address], * (ABNORMAL) Lipid panel (05/08/2018) LDL/HDL Ratio 5(A) 0 - 4 Triglycerides 254(A) 0 - 150 mg/dL Cholesterol 255(A) 0 - 200 mg/dL HDL 53 >=40 mg/dL LDL Cholesterol 152(A) 0 - 100 mg/dL Blood Venous blood specimen / Unknown Historical Provider LAB BLOOD ORDERABLES Naomi l Result * Cervical Cancer Screening: HPV (10/17/2016) Pathologist [facility] Cervical Cancer Screening: HPV Abstracted, Negative Historical Provider HEALTH MAINTENANCE Final Result from Last 3 Months or Most Recently Relevant to Health Maintenance Insurance [facility] [place] [address] [employer] Advance Directives Documents on File Type Date Recorded 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
== END 2024-10-29 08:43 | disposition home or self-care (01) ==
LOC: HO.HOSX 08:42
PROVIDERS: Visit Provider Orthopaedic Surgery
DX: M25.511 Pain in right shoulder (principal)
CPT/HCPCS: 73030

== ENCOUNTER 2024-10-29 08:56 | Outpatient (AMB) | payer OTHER, SELFPAY ==
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
[2024-10-29 09:04] VITALS: BMI 21.8
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
== END 2024-10-29 09:27 | disposition home or self-care (01) ==
PROVIDERS: Visit Provider Orthopaedic Surgery
DX: M25.512 Pain in left shoulder (principal); M25.511 Pain in right shoulder; M54.2 Cervicalgia; Z98.890 Other specified postprocedural states
CPT/HCPCS: 99203; G2211

== ENCOUNTER → 2024-10-29 08:57 | Outpatient (BNV) | payer OTHER, SELFPAY | PROVIDERS: Visit Provider Radiology Diagnostic Radiology | DX: M19.011 Primary osteoarthritis, right shoulder (principal) | CPT/HCPCS: 73030 ==

== ENCOUNTER 2024-11-07 14:41 | Outpatient (REF) | payer OTHER, SELFPAY ==
--- NOTE | ~2024-11-07 | MR_ITS ---
EXAMINATION: MR CERVICAL SPINE WITHOUT CONTRAST CLINICAL INFORMATION: Cervicalgia. COMPARISON: MRI from an outside institution dated June 10, 2024. TECHNIQUE: MRI of the cervical spine was obtained using routine sequences without contrast. FINDINGS: Paramagnetic field distortion secondary to metallic hardware plate C4 C6. Craniocervical junction is intact with normal position of the cerebellar tonsils. There is a pannus formation, periodontal region. Buckling deformity dorsal aspect of the thecal sac at C3-4 and to a lesser extent C6-7 secondary to ligamentum flavum hypertrophy. Grade 1 anterolisthesis C3-4, C7-T1 and T1-T2. Bone marrow STIR signal within the posterior elements C7-T1, similar since prior exam. Cervical spinal cord signal is normal. C2-3: No disc herniation. No neuroforamina stenosis. C3-4: Broad-based disc osteophyte compresses formation. No cord compression. No neuroforamina stenosis. C4-5: Postsurgical changes. No cord compression. Left facet joint hypertrophy. Left neuroforamina narrowing on a degenerative basis. C5-6: Postsurgical changes. No cord compression. Left neuroforamina and narrowing. Left facet joint hypertrophy. C6-7: No herniated disc. No neuroforamina stenosis. No cord compression. C7-T1: No herniated disc. No neuroforamina stenosis. No cord compression. Facet joint hypertrophy bilaterally. No prevertebral compartment hematoma, mass or fluid collection. Flow-void signal within the main vessels is normal. Left vertebral artery is dominant. Retropharyngeal trajectory right carotid artery. MR/MR cervical spine wo con IMPRESSION: Cervical spondylosis C3-4 without cord compression, cord edema and or myelopathy. Grade 1 anterolisthesis C3-4, C7-T1 and T1-2 on a degenerative basis. Electronically signed by: Valeriano Garland MD 11/09/2024 07:59 AM EDT
--- OUTSIDE RECORDS SUMMARY | 2024-11-07 14:45 | XMS_ITS | Clinical Summary ---
Author Organization 175 [facility] Address [address] [place] [address] Phone Care Team Providers Care Wheelman Name Role Phone Melisa Jensen MD Primary Care Provider [phone] Allergies Active Allergy Reactions Criticality Noted Date [...] of the cervical spine today taken at [facility] and it shows good position of her [...] Description 10/12/2024 1:45 PM EDT Office Visit [facility] 175 [facility] [address] [place] [phone] Sangeeta Hayward MD Neck pain on left side (Primary Dx) 10/01/2024 5:11 PM EDT - 10/01/2024 9:29 PM EDT Emergency [facility] Emergency [address] [place] [phone] Bilateral flank pain (Primary Dx); LUQ pain Discharge Disposition: Home or Self Care 09/17/2024 Telephone [facility] [address] [phone] Joann Myers PA 08/17/2024 Telephone [facility] [address] [phone] Kirstie Kramer MA from Last [...] LAB HEMETOLOGY METHOD 10/01/2024 6:18 PM EDT [facility] RBC 4.20 3.80 - 4.80 M/mcL LAB HEMETOLOGY METHOD 10/01/2024 6:18 PM EDT [facility] Hemoglobin 12.8 11.5 - 16.0 g/dL LAB HEMETOLOGY METHOD 10/01/2024 6:18 PM EDT [facility] Hematocrit 39.3 35.0 - 47.0 % LAB HEMETOLOGY METHOD 10/01/2024 6:18 PM EDT [facility] MCV 94.5 79.0 - 98.0 FL LAB HEMETOLOGY METHOD 10/01/2024 6:18 PM EDT [facility] MCH 30.8 27.0 - 32.0 pcg LAB HEMETOLOGY METHOD 10/01/2024 6:18 PM [facility] MCHC 32.6 32.0 - 37.0 g/dL LAB HEMETOLOGY METHOD 10/01/2024 6:18 PM [facility] RDW 12.5 11.0 - 15.0 % LAB HEMETOLOGY METHOD 10/01/2024 6:18 PM [facility] Platelets 322 130 - 400 K/mcL LAB HEMETOLOGY METHOD 10/01/2024 6:18 PM EDT [facility] MPV 10.2 7.0 - 11.0 FL LAB HEMETOLOGY METHOD 10/[facility]24 [facility] NRBC 0.0 <1.0 % LAB HEMETOLOGY METHOD 10/01/2024 6:[facility] NRBC Absolute 0.00 <0.10 K/mcL LAB HEMETOLOGY METHOD 10/01/2024 6:[facility] Neutrophils Relative 57.6 % LAB HEMETOLOGY METHOD 10/01/2024 6:18 PM [facility] Lymphocytes Relative 33.6 % LAB HEMETOLOGY METHOD 10/01/2024 6:18 PM [facility] Monocytes Relative 5.0 % LAB HEMETOLOGY METHOD 10/01/2024 6:18 PM [facility] Eosinophils Relative 2.8 % LAB HEMETOLOGY METHOD 10/01/2024 6:18 PM [facility] Basophils Relative 0.8 % LAB HEMETOLOGY METHOD 10/01/2024 6:18 PM [facility] Immature Granulocytes Relative 0.2 % LAB HEMETOLOGY METHOD 10/01/2024 6:18 PM [facility] Neutrophils Absolute 5.29 1.50 - 7.00 K/mcL LAB HEMETOLOGY METHOD 10/01/2024 6:18 PM [facility] Lymphocytes Absolute 3.08 1.00 - 5.00 K/mcL LAB HEMETOLOGY METHOD 10/01/2024 6:18 PM [facility] Monocytes Absolute 0.46 0.20 - 1.00 K/mcL LAB HEMETOLOGY METHOD 10/01/2024 6:18 PM [facility] Eosinophils Absolute 0.26 0.00 - 0.50 K/mcL LAB HEMETOLOGY METHOD 10/01/2024 6:18 PM EDT [facility] Basophils Absolute 0.07 0.00 - 0.20 K/[facility] LAB HEMETOLOGY METHOD 10/01/2024 6:18 PM EDT [facility] Immature Granulocytes Absolute 0.02 0.00 - 0.03 K/[facility] LAB HEMETOLOGY METHOD 10/01/2024 6:18 PM EDT [facility] Blood Venous blood specimen / Unknown Venipuncture / Unknown 10/01/2024 5:23 PM EDT 10/01/2024 6:01 PM EDT Rashard Boyd MD LAB BLOOD ORDERABLES Final Resu lt Performing Organization Address [facility]/ZIP Co de Phone Number [facility] [address] [place] [address], [place] [phone] * Lipase (10/01/2024 5:23 PM EDT) Lipase 60 13 - 75 unit/L LAB CHEMISTRY METHOD 10/01/2024 6:38 PM EDT [facility] Blood Venous blood specimen / Unknown Venipuncture / Unknown 10/01/2024 5:23 PM EDT 10/01/2024 6:01 PM EDT Fransico FIGUEROA LAB BLOOD ORDERABLES Final Resul t Performing Organization Address City/[facility]/ZIP Co de Phone Number [facility] [address] [place] [address], [place] [phone] * (ABNORMAL) Comprehensive metabolic panel (10/01/2024 5:23 PM EDT) Sodium 139 133 - 145 mmol/L LAB CHEMISTRY METHOD 10/01/2024 6:38 PM EDT [facility] Potassium 4.1 3.5 - 5.5 mmol/L LAB CHEMISTRY METHOD 10/01/2024 6:38 PM [facility] Chloride 106 96 - 110 mmol/L LAB CHEMISTRY METHOD 10/01/2024 6:38 PM [facility] CO2 25 21 - 32 mmol/L LAB CHEMISTRY METHOD 10/01/2024 6:38 PM [facility] Anion Gap 8 3 - 11 LAB CHEMISTRY METHOD 10/01/2024 6:38 PM [facility] Glucose 92 70 - 100 mg/dL LAB CHEMISTRY METHOD 10/01/2024 6:38 PM [facility] BUN 15 5 - 25 mg/dL LAB CHEMISTRY METHOD 10/01/2024 6:38 PM [facility] Creatinine 0.95 0.50 - 1.10 mg/dL LAB CHEMISTRY METHOD 10/01/2024 6:38 PM [facility] eGFR 69 >=60 mL/min/1. 73m2 LAB CHEMISTRY METHOD 10/01/2024 6:38 PM [facility] Comment:Calculation based on the??Chronic Kidney Disease Epidemiology Collaboration (CKD-EPI) equation refit??without adjustment for race. BUN/Creatinine Ratio 15.8 LAB CHEMISTRY METHOD 10/01/2024 6:38 PM [facility] Calcium 10.6(H) 8.5 - 10.5 mg/dL LAB CHEMISTRY METHOD 10/01/2024 6:38 PM [facility] AST (SGOT) 24 10 - 42 unit/L LAB CHEMISTRY METHOD 10/01/2024 6:38 PM [facility] ALT (SGPT) 21 10 - 60 unit/L LAB CHEMISTRY METHOD 10/01/2024 6:38 PM [facility] Alkaline Phosphatase 65 42 - 121 unit/L LAB CHEMISTRY METHOD 10/01/2024 6:38 PM [facility] Total Protein 7.7 6.0 - 8.0 g/dL LAB CHEMISTRY METHOD 10/01/2024 6:38 PM EDT [facility] Albumin 4.9 3.2 - 5.0 g/dL LAB CHEMISTRY METHOD 10/01/2024 6:38 PM EDT [facility] Total Bilirubin 0.6 0.0 - 1.4 mg/dL LAB CHEMISTRY METHOD 10/01/2024 6:38 PM EDT [facility] Blood Venous blood specimen / Unknown Venipuncture / Unknown 10/01/2024 5:23 PM EDT 10/01/2024 6:01 PM EDT Rashard Boyd MD LAB BLOOD ORDERABLES Final Resu lt [facility] [address] [place] [address], [place] [phone] * ECG 12 lead (10/01/2024 4:55 PM EDT) Pathologist [facility] Ventricular Rate ECG 57 BPM GEMUSE Atrial Rate 57 BPM GEMUSE P-R Interval 158 ms GEMUSE QRS Duration 92 ms GEMUSE Q-T Interval 448 ms GEMUSE QTc 436 ms GEMUSE P Wave [place] 61 degrees GEMUSE R [place] -32 degrees GEMUSE T [place] 24 degrees GEMUSE ECG Interpretation Sinus bradycardia with sinus arrhythmia Left axis deviation Minimal voltage criteria for LVH, may be normal variant Abnormal ECG When compared with ECG of 15-MAR-2024 14:47, No significant change was found Confirmed by JOSÉ JOE ([id number]) on 10/03/2024 8:48:14 AM GEMUSE 10/01/2024 4:55 PM EDT 10/03/2024 8:48 AM EDT Fransico FIGUEROA ECG ORDERABLES Final Result Performing Organization Address City/[facility]/ZIP Co de Phone Number GEMUSE * (ABNORMAL) Urinalysis with reflex microscopic and culture (10/01/2024 3:55 PM EDT) Pathologist [facility] Specific [place] Urine 1.006 1.003 - 1.030 LAB URINALYSIS - AUTOMATED METHOD 10/01/2024 4:13 PM [facility] pH, Urine 6.5 5.0 - 8.0 pH LAB URINALYSIS - AUTOMATED METHOD 10/01/2024 4:13 PM [facility] Leukocytes, Urine Small(A) Negative LAB URINALYSIS - AUTOMATED METHOD 10/01/2024 4:13 PM [facility] Nitrite, Urine Negative Negative LAB URINALYSIS - AUTOMATED METHOD 10/01/2024 4:13 PM [facility] Protein, Urine Negative <=Trace mg/dL LAB URINALYSIS - AUTOMATED METHOD 10/01/2024 4:13 PM [facility] Glucose, Urine Negative Negative mg/dL LAB URINALYSIS - AUTOMATED METHOD 10/01/2024 4:13 PM [facility] Ketones, Urine Negative Negative mg/dL LAB URINALYSIS - AUTOMATED METHOD 10/01/2024 4:13 PM [facility] Urobilinogen, Urine 0.2 0.2 - 1.0 mg/dL LAB URINALYSIS - AUTOMATED METHOD 10/01/2024 4:13 PM [facility] Bilirubin, Urine Negative Negative LAB URINALYSIS - AUTOMATED METHOD 10/01/2024 4:13 PM [facility] Blood, Urine Negative Negative LAB URINALYSIS - AUTOMATED METHOD 10/01/2024 4:13 PM [facility] RBC, Urine 0.5 0 - 4 /HPF LAB URINALYSIS - AUTOMATED METHOD 10/01/2024 4:13 PM [facility] WBC, Urine 3.9 0 - 4 /HPF LAB URINALYSIS - AUTOMATED METHOD 10/01/2024 4:13 PM [facility] Squamous Epithelial, Urine 64(H) 0 - 60 /LPF LAB URINALYSIS - AUTOMATED METHOD 10/01/2024 4:13 PM EDT [facility] Bacteria, Urine Negative Negative /HPF LAB URINALYSIS - AUTOMATED METHOD 10/01/2024 4:13 PM EDT [facility] Hyaline Casts, Urine 1.6 0 - 3 /LPF LAB URINALYSIS - AUTOMATED METHOD 10/01/2024 4:13 PM EDT [facility] Urine Urine specimen obtained by clean catch procedure / Unknown Non-blood Collection / Unknown 10/01/2024 3:55 PM EDT 10/01/2024 4:07 PM EDT us Rashard Boyd MD LAB URINE ORDERABLES Final Resu lt Performing Organization Address [facility]/ZIP Co de Phone Number [facility] [address] [place] [address], [place] [phone] * Ward urine culture tube (10/01/2024 3:55 PM EDT) Extra Tube Hold for add-ons. 10/01/2024 6:02 PM EDT [facility] Comment:Auto resulted. Urine Urine specimen obtained by clean catch procedure / Unknown Non-blood Collection / Unknown 10/01/2024 3:55 PM EDT 10/01/2024 4:07 PM EDT us Rashrad Boyd MD LAB URINE ORDERABLES Final Resu lt [facility] [address] [place] [address], [place] [phone] * Culture urine (10/01/2024 3:55 PM EDT) Culture, Urine <10,000 cfu/ml, insignificant count, no further workup. 10/02/2024 8:23 AM EDT [facility] Urine Urine specimen obtained by clean catch procedure / Unknown Non-blood Collection / Unknown 10/01/2024 3:55 PM EDT 10/01/2024 4:13 PM EDT Rashard Boyd MD LAB MICROBIOLOGY - GENERAL CAR [place] Final Result [facility] [address] [place] [address], * (ABNORMAL) Lipid panel (05/08/2018) LDL/HDL Ratio 5(A) 0 - 4 Triglycerides 254(A) 0 - 150 mg/dL Cholesterol 255(A) 0 - 200 mg/dL HDL 53 >=40 mg/dL LDL Cholesterol 152(A) 0 - 100 mg/dL Blood Venous blood specimen / Unknown Historical Provider LAB BLOOD ORDERABLES Naomi l Result * Cervical Cancer Screening: HPV (10/17/2016) Pathologist [facility] Cervical Cancer Screening: HPV Abstracted, Negative Historical Provider HEALTH MAINTENANCE Final Result from Last 3 Months or Most Recently Relevant to Health Maintenance Insurance [facility] PLAN [facility] [employer] Advance Directives Documents on File Type Date Recorded 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
== END 2024-11-07 14:42 | disposition home or self-care (01) ==
LOC: HO.MRI 14:41
PROVIDERS: PCP Internal Medicine; Visit Provider Orthopaedic Surgery
DX: M54.2 Cervicalgia (principal); Z98.890 Other specified postprocedural states
CPT/HCPCS: 72141

== ENCOUNTER → 2024-11-07 14:47 | Outpatient (BNV) | payer OTHER, SELFPAY | PROVIDERS: PCP Internal Medicine; Visit Provider Radiology Diagnostic Radiology | DX: M47.812 Spondylosis without myelopathy or radiculopathy, cervical region (principal) | CPT/HCPCS: 72141 ==

== ENCOUNTER 2024-11-24 09:55 | Outpatient (AMB) | payer OTHER, SELFPAY ==
--- NOTE | 2024-11-24 09:56 | A.OFFVIS_ITS ---
Vital Signs 11/24/24 10:00 Height 5 ft 3 in Weight 123 lb BMI 21.8 Intake Visit Reasons: OV- Cervical Spine MRI Review, Left shoulder pain and weakness Intake Note: Kelly is a 59 year old female who presents with complaints of progressively worsening left shoulder pain and weakness as well as neck pain which radiates into her left arm. The patient has been going to formal physical therapy for the last 6 weeks. The therapy seems to have aggravated her symptoms. She has tried Tylenol and anti-inflammatory medicines which gave her minimal relief. The patient reports weakness when lifting her left hand above shoulder height. Allergies bee pollen Allergy (Verified 11/24/24 09:58) Anaphylaxis Medication List - Last Reconciled 11/24/24 by Balta Becerra MD albuterol sulfate 90 mcg/actuation inhalation cyclobenzaprine 10 mg PO TID PRN diclofenac sodium 1% 1 ea topical QID fluticasone propionate 50 mcg/actuation sprays intranasal gabapentin 100 mg PO TID lidocaine 5% 1 patch topical DAILY loratadine 10 mg PO DAILY omeprazole 20 mg PO DAILY pravastatin 40 mg PO DAILY tizanidine 4 mg PO BEDTIME tramadol 50 mg PO Q4H PRN trazodone 100 mg PO BEDTIME PFSH Medical History (Updated 11/24/24 @ 10:25 by Balta Becerra MD) Left shoulder pain Right shoulder pain Social History (Updated 10/29/24 @ 09:13 by KRISTOFER Medel) Patient Tobacco Use Status: Never used Tobacco Current occupational status: retired Current occupation: rt handed Physical Exam Vital Signs: BMI result Body Mass Index 21.8 Const Other: Well-nourished well-developed very friendly female awake alert and oriented x3 in no acute distress Neck Other: Cervical spine examination shows left-sided paraspinal muscle tenderness, pain with range of motion, positive Spurling's test Extrem Other: Left shoulder examination shows decreased range of motion when compared to her right shoulder, 4+ out of 5 strength with supraspinatus testing, positive impingement signs, tenderness over her acromioclavicular joint, no instability Results Reviewed Results Reviewed: MRI of the cervical spine shows diffuse degenerative disc disease as well as cervical stenosis, no acute bony abnormalities X-rays of the patient's left shoulder taken previously show severe acromioclavicular joint narrowing, a type 2 acromion, no acute bony abnormalities Assessment & Plan Assessment & Plan (1) Rotator cuff insufficiency of left shoulder: Code(s): M25.312 - Other instability, left shoulder Category: Medical (2) Neck pain: Code(s): M54.2 - Cervicalgia Category: Medical Plan Ms. Reyes presents with progressively worsening left shoulder pain and weakness due to impingement syndrome and possible rotator cuff tearing. Thus, I will send the patient for an MRI of her left shoulder for further evaluation. She also has neck pain which radiates into her left arm due to cervical stenosis. I will refer her to the neurosurgery department for further evaluation. Feel free to call me at any time should questions regarding her o rthopedic management arise. I spent 20 minutes in reviewing the patient's records and imaging studies, seeing the patient and documenting in the medical record. Orders: Orders MR shoulder LT wo con 11/24/24 M25.312 - Other instability, left shoulder Referrals Neuro Spine Referral M54.2 - Cervicalgia Coding Level of Care Code Est Pt Level 3 (97112) Complex EM visit Add On G2211 Diagnoses Rotator cuff insufficiency of left shoulder M25.312 Neck pain M54.2
[2024-11-24 10:00] VITALS: BMI 21.8
--- OUTSIDE RECORDS SUMMARY | 2024-11-24 11:16 | XMS_ITS | Clinical Summary ---
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 Emergency [address] [place] [address] Bilateral flank pain (Primary Dx); LUQ pain Discharge Disposition: Home or Self Care 09/17/2024 Telephone [facility] [address] [facility] [address] [place] [address] Joann Myers PA from Last 3 Months Immunizations Name Administration [...] Anatomical Region Laterality Modality Computed Tomogra phy us Historical Provider IMG CT PROCEDURES Final R [...] Elías Chester MD on 10/01/2024 20:09:55 Fransico Mitchell RI IM CT PROCEDURES Final Result * CBC auto differential (10/01/2024 5:23 PM EDT) WBC 9.2 4.8 - 10.8 K/mcL LAB HEMETOLOGY METHOD 10/01/2024 6:18 PM EDT [facility] RBC 4.20 3.80 - 4.80 M/mcL LAB [facility]OLOG[facility] Hemoglobin 12.8 11.5 - 16.0 g/dL LAB HEMETOLOGY METHOD [facility] Hematocrit 39.3 35.0 - 47.0 % LAB HEMETOLOGY METHOD 10/01/2024 6:18 PM EDT [facility] MCV 94.5 79.0 - 98.0 FL LAB HEMETOLOGY METHOD 10/01/2024 6:18 PM EDT [facility] MCH 30.8 27.0 - 32.0 pcg LAB HEMETOLOGY METHOD 10/[facility] MCHC 32.6 32.0 - 37.0 g/dL LAB HEMETOLOGY METHOD 10/01/2024 6:18 PM EDT [facility] RDW 12.5 11.0 - 15.0 % LAB HEMETOLOGY METHOD 10/01/2024 6[facility] Platelets 322 130 - 400 K/mcL LAB HEMETOLOGY METHOD 10/01/2024 6[facility] MPV 10.2 7.0 - 11.0 FL LAB HEMETOLOGY METHOD 10/01/2024 6:18 PM EDT [facility] NRBC 0.0 <1.0 % LAB HEMETOLOGY METHOD 10/01/2024 6[facility] NRBC Absolute 0.00 <0.10 K/mcL LAB HEMETOLOGY METHOD 10/01/2024 6[facility] Neutrophils Relative 57.6 % LAB HEMETOLOGY METHOD 10/01/2024 6:18 PM [facility] Lymphocytes Relative 33.6 % LAB HEMETOLOGY METHOD 10/01/2024 6:18 PM T [facility] Monocytes Relative 5.0 % LAB HEMETOLOGY METHOD 10/01/2024 6:18 PM [facility] Eosinophils Relative 2.8 % LAB HEMETOLOGY METHOD 10/01/2024 6:18 PM [facility] Basophils Relative 0.8 % LAB HEMETOLOGY METHOD 10/01/2024 6:18 PM [facility] Immature Granulocytes Relative 0.2 % LAB HEMETOLOGY METHOD 10/01/2024 6:18 PM [facility] Neutrophils Absolute 5.29 1.50 - 7.00 K/mcL LAB HEMETOLOGY METHOD 10/01/2024 6:18 PM [facility] Lymphocytes Absolute 3.08 1.00 - 5.00 K/mcL LAB HEMETOLOGY METHOD 10/01/2024 6:18 PM T [facility] Monocytes Absolute 0.46 0.20 - 1.00 K/mcL LAB HEMETOLOGY METHOD 10/01/2024 6:18 PM [facility] Eosinophils Absolute 0.26 0.00 - 0.50 K/mcL LAB HEMETOLOGY METHOD 10/01/2024 6:18 PM [facility] Basophils Absolute 0.07 0.00 - 0.20 K/mcL LAB HEMETOLOGY METHOD 10/01/2024 6:18 PM EDT [facility] Immature Granulocytes Absolute 0.02 0.00 - 0.03 K/[facility] LAB HEMETOLOGY METHOD 10/01/2024 6:18 PM EDT [facility] Blood Venous blood specimen / Unknown Venipuncture / Unknown 10/01/2024 5:23 PM EDT 10/01/2024 6:01 PM EDT us Rashard Boyd MD LAB BLOOD ORDERABLES Final Resu lt Performing Organization Address City/[facility]/ZIP Co de Phone Number [facility] [address] [place] [address], [place] [phone] * Lipase (10/01/2024 5:23 PM EDT) Lipase 60 13 - 75 unit/L LAB CHEMISTRY METHOD 10/01/2024 6:38 PM EDT [facility] Blood Venous blood specimen / Unknown Venipuncture / Unknown 10/01/2024 5:23 PM EDT 10/01/2024 6:01 PM EDT Fransico FIGUEROA LAB BLOOD ORDERABLES Final Resul t Performing Organization Address [facility]/ZIP Co de Phone Number [facility] [address] [place] [address], [place] [phone] * (ABNORMAL) Comprehensive metabolic panel (10/01/2024 5:23 PM EDT) Sodium 139 133 - 145 mmol/L LAB CHEMISTRY METHOD 10/01/2024 6:38 PM EDT [facility] Potassium 4.1 3.5 - 5.5 mmol/L LAB CHEMISTRY METHOD 10/01/2024 6:38 PM EDT [facility] Chloride 106 96 - 110 mmol/L LAB CHEMISTRY METHOD 10/01/2024 6:38 PM [facility] CO2 25 21 - 32 mmol/L LAB CHEMISTRY METHOD 10/01/2024 6:38 PM [facility] Anion Gap 8 3 - 11 LAB CHEMISTRY METHOD 10/01/2024 6:38 PM [facility] Glucose 92 70 - 100 mg/dL LAB CHEMISTRY METHOD 10/01/2024 6:38 PM [facility] BUN 15 5 - 25 mg/dL LAB CHEMISTRY METHOD 10/01/2024 6:38 PM [facility] Creatinine 0.95 0.50 - 1.10 mg/dL LAB CHEMISTRY METHOD 10/01/2024 6:38 PM [facility] eGFR 69 >=60 mL/min/1. 73m2 LAB CHEMISTRY METHOD 10/01/2024 6:38 PM [facility] Comment:Calculation based on the??Chronic Kidney Disease Epidemiology Collaboration (CKD-EPI) equation refit??without adjustment for race. BUN/Creatinine Ratio 15.8 LAB CHEMISTRY METHOD 10/01/2024 6:38 PM [facility] Calcium 10.6(H) 8.5 - 10.5 mg/dL LAB CHEMISTRY METHOD 10/01/2024 6:38 PM [facility] AST (SGOT) 24 10 - 42 unit/L LAB CHEMISTRY METHOD 10/01/2024 6:38 PM [facility] ALT (SGPT) 21 10 - 60 unit/L LAB CHEMISTRY METHOD 10/01/2024 6:38 PM [facility] Alkaline Phosphatase 65 42 - 121 unit/L LAB CHEMISTRY METHOD 10/01/2024 6:38 PM [facility] Total Protein 7.7 6.0 - 8.0 g/dL LAB CHEMISTRY METHOD 10/01/2024 6:38 PM [facility] Albumin 4.9 3.2 - 5.0 g/dL LAB CHEMISTRY METHOD 10/01/2024 6:38 PM EDT [facility] Total Bilirubin 0.6 0.0 - 1.4 mg/dL LAB CHEMISTRY METHOD 10/01/2024 6:38 PM EDT [facility] Blood Venous blood specimen / Unknown Venipuncture / Unknown 10/01/2024 5:23 PM EDT 10/01/2024 6:01 PM EDT Rashard Boyd MD LAB BLOOD ORDERABLES Final Resu lt Performing Organization Address [facility]/ZIP Co de Phone Number [facility] [address] [place] [address], [place] [phone] * ECG 12 lead (10/01/2024 4:55 PM EDT) Ventricular Rate ECG 57 BPM GEMUSE Atrial Rate 57 BPM GEMUSE P-R Interval 158 ms GEMUSE QRS Duration 92 ms GEMUSE Q-T Interval 448 ms GEMUSE QTc 436 ms GEMUSE P Wave [place] 61 degrees GEMUSE R [place] -32 degrees GEMUSE T [place] 24 degrees GEMUSE ECG Interpretation Sinus bradycardia with sinus arrhythmia Left axis deviation Minimal voltage criteria for LVH, may be normal variant Abnormal ECG When compared with ECG of 15-MAR-2024 14:47, No significant change was found Confirmed by JOSÉ JOE ([id number]) on 10/03/2024 8:48:14 AM GEMUSE 10/01/2024 4:55 PM EDT 10/03/2024 8:48 AM EDT Fransico FIGUEROA ECG ORDERABLES Final Result Performing Organization Address [facility] Co de Phone Number GEMUSE * (ABNORMAL) Urinalysis with reflex microscopic and culture (10/01/2024 3:55 PM EDT) Pathologist [facility] [employer] Urine 1.006 1.003 - 1.030 LAB URINALYSIS - AUTOMATED METHOD 10/01/2024 4:13 PM EDT [facility] pH, Urine 6.5 5.0 - 8.0 pH LAB URINALYSIS - AUTOMATED METHOD 10/01/2024 4:13 PM [facility] Leukocytes, Urine Small(A) Negative LAB URINALYSIS - AUTOMATED METHOD 10/01/2024 4:13 PM [facility] Nitrite, Urine Negative Negative LAB URINALYSIS - AUTOMATED METHOD 10/01/2024 4:13 PM [facility] Protein, Urine Negative <=Trace mg/dL LAB URINALYSIS - AUTOMATED METHOD 10/01/2024 4:13 PM [facility] Glucose, Urine Negative Negative mg/dL LAB URINALYSIS - AUTOMATED METHOD 10/01/2024 4:13 PM [facility] Ketones, Urine Negative Negative mg/dL LAB URINALYSIS - AUTOMATED METHOD 10/01/2024 4:13 PM [facility] Urobilinogen, Urine 0.2 0.2 - 1.0 mg/dL LAB URINALYSIS - AUTOMATED METHOD 10/01/2024 4:13 PM [facility] Bilirubin, Urine Negative Negative LAB URINALYSIS - AUTOMATED METHOD 10/01/2024 4:13 PM [facility] Blood, Urine Negative Negative LAB URINALYSIS - AUTOMATED METHOD 10/01/2024 4:13 PM [facility] RBC, Urine 0.5 0 - 4 /HPF LAB URINALYSIS - AUTOMATED METHOD 10/01/2024 4:13 PM [facility] WBC, Urine 3.9 0 - 4 /HPF LAB URINALYSIS - AUTOMATED METHOD 10/01/2024 4:13 PM [facility] Squamous Epithelial, Urine 64(H) 0 - 60 /LPF LAB URINALYSIS - AUTOMATED METHOD 10/01/2024 4:13 PM [facility] Bacteria, Urine Negative Negative /HPF LAB URINALYSIS - AUTOMATED METHOD 10/01/2024 4:13 PM EDT [facility] Hyaline Casts, Urine 1.6 0 - 3 /LPF LAB URINALYSIS - AUTOMATED METHOD 10/01/2024 4:13 PM EDT [facility] Urine Urine specimen obtained by clean catch procedure / Unknown Non-blood Collection / Unknown 10/01/2024 3:55 PM EDT 10/01/2024 4:07 PM EDT us Rashard Boyd MD LAB URINE ORDERABLES Final Resu lt Performing Organization Address City/[facility]/ZIP Co de Phone Number [facility] [address] [place] [address], [place] [phone] * Ward urine culture tube (10/01/2024 3:55 PM EDT) Extra Tube Hold for add-ons. 10/01/2024 6:02 PM EDT [facility] Comment:Auto resulted. Urine Urine specimen obtained by clean catch procedure / Unknown Non-blood Collection / Unknown 10/01/2024 3:55 PM EDT 10/01/2024 4:07 PM EDT us Rashard Boyd MD LAB URINE ORDERABLES Final Resu lt Performing Organization Address City/[facility]/ZIP Co de Phone Number [facility] [address] [place] [address], [place] [phone] * Culture urine (10/01/2024 3:55 PM EDT) Culture, Urine <10,000 cfu/ml, insignificant count, no further workup. 10/02/2024 8:23 AM EDT [facility] Urine Urine specimen obtained by clean catch procedure / Unknown Non-blood Collection / Unknown 10/01/2024 3:55 PM EDT 10/01/2024 4:13 PM EDT Rashard Boyd MD LAB MICROBIOLOGY - GENERAL TORSTENPenelope CARIASJANE Final Result [facility] [address] [place] [address], * (ABNORMAL) Lipid panel (05/08/2018) LDL/HDL Ratio 5(A) 0 - 4 Triglycerides 254(A) 0 - 150 mg/dL Cholesterol 255(A) 0 - 200 mg/dL HDL 53 >=40 mg/dL LDL Cholesterol 152(A) 0 - 100 mg/dL Blood Venous blood specimen / Unknown Historical Provider LAB BLOOD ORDERABLES Naomi l Result * Cervical Cancer Screening: HPV (10/17/2016) Cervical Cancer Screening: HPV Abstracted, Negative Historical Provider HEALTH MAINTENANCE Final Result from Last 3 Months or Most Recently Relevant to Health Maintenance Insurance [facility] [employer] Member Subscriber Plan / Payer (Ef fective 2024-Present) Name:Kelly Reyes Relation to Subscriber:Self Name:Kelly Reyes Payer ID:[id number] Group ID:Not on file Type:Not on file Address: [facility] [address] [id number] Advance Directives Documents on File Type Date Recorded 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
== END 2024-11-24 10:27 | disposition home or self-care (01) ==
LOC: HO.HOS 09:56
PROVIDERS: PCP Internal Medicine; Visit Provider Orthopaedic Surgery
DX: M25.312 Other instability, left shoulder (principal); M54.2 Cervicalgia
CPT/HCPCS: 99213; G2211

== ENCOUNTER → 2024-11-24 09:55 | Outpatient (BNVA) | payer OTHER, SELFPAY | PROVIDERS: PCP Internal Medicine; Visit Provider Orthopaedic Surgery ==

== ENCOUNTER → 2024-12-04 07:11 | Outpatient (BNV) | payer OTHER, SELFPAY | PROVIDERS: PCP Internal Medicine; Visit Provider Radiology Diagnostic Radiology | DX: M75.112 Incomplete rotator cuff tear or rupture of left shoulder, not specified as traumatic (principal); M75.32 Calcific tendinitis of left shoulder; M19.012 Primary osteoarthritis, left shoulder; M71.312 Other bursal cyst, left shoulder | CPT/HCPCS: 73221 ==

== ENCOUNTER 2024-12-04 07:19 | Outpatient (REF) | payer OTHER, SELFPAY ==
--- NOTE | ~2024-12-04 | MR_ITS ---
CLINICAL HISTORY: M25.312 - Other instability, left shoulder MR left shoulder without gadolinium Comparison: CR/SR - XR SHOULDER LT MIN 2V - 10/06/24 15:29 EDT Findings: No acute fracture or pathologic bone lesion. 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 Trace amount of fluid within the subacromial subdeltoid bursa. Degenerative tearing of the glenoid labrum associated with several paralabral cysts, most conspicuous posteroinferiorly and anteroinferiorly. The largest cyst conglomerate posteroinferiorly measures up to 1.1 x 1.4 x 2.4 cm in maximum dimensions. No glenohumeral joint effusion. A low-grade partial-thickness intrasubstance tear of the supraspinatus tendon insertion measures 4 mm medial to lateral and 6 mm anterior to posterior. This is superimposed on mild to moderate tendinopathy. Mild marrow edema is present within the subjacent superior base of the greater tuberosity. Mild to moderate subscapularis tendinopathy without discrete tear. The infraspinatus and teres minor tendons are intact. No rotator cuff atrophy or fatty replacement. The long head of the biceps is intact. IMPRESSION: 1. Small low-grade partial-thickness intrasubstance tear of the supraspinatus tendon insertion, superimposed on mild to moderate tendinopathy. Mild reactive marrow edema within the subjacent superior base of the greater tuberosity and minimal subacromial subdeltoid bursitis. 2. Mild to moderate subscapularis tendinopathy without discrete tear. 3. Moderate glenohumeral osteoarthritis with degenerative tearing of the labrum and multiple inferior paralabral cysts measuring up to 2.4 cm in maximum dimension posteroinferiorly. 4. Mild acromioclavicular osteoarthritis. This document has been electronically signed by: Pb Carrillo DO on 12/05/2024 13:17:05
== END 2024-12-04 07:20 | disposition home or self-care (01) ==
LOC: HO.MRI 07:19
PROVIDERS: PCP Internal Medicine; Visit Provider Orthopaedic Surgery
DX: M25.312 Other instability, left shoulder (principal)
CPT/HCPCS: 73221

== ENCOUNTER 2024-12-09 08:01 | Outpatient (AMB) | payer OTHER, SELFPAY ==
--- NOTE | 2024-12-09 08:04 | A.OFFVIS_ITS ---
Vital Signs 12/09/24 08:05 Height 5 ft 3 in Weight 123 lb BMI 21.8 Intake Visit Reasons: OV- Left Shoulder MRI Review Intake Note: Kelly is a 59 year old female who presents with complaints of progressively worsening left shoulder pain and weakness as well as neck pain which radiates into her left arm. The patient has been going to formal physical therapy for the last 6 weeks. The therapy seems to have aggravated her symptoms. She has tried Tylenol and anti-inflammatory medicines which gave her minimal relief. The patient reports weakness when lifting her left hand above shoulder height. The patient did undergo cervical spine fusion surgery by Dr. Bishop several years ago. Allergies bee pollen Allergy (Verified 12/09/24 08:05) Anaphylaxis Medication List - Last Reconciled 12/09/24 by Balta Becerra MD albuterol sulfate 90 mcg/actuation inhalation cyclobenzaprine 10 mg PO TID PRN diclofenac sodium 1% 1 ea topical QID fluticasone propionate 50 mcg/actuation sprays intranasal gabapentin 100 mg PO TID lidocaine 5% 1 patch topical DAILY loratadine 10 mg PO DAILY omeprazole 20 mg PO DAILY pravastatin 40 mg PO DAILY tizanidine 4 mg PO BEDTIME tramadol 50 mg PO Q4H PRN trazodone 100 mg PO BEDTIME PFSH Medical History (Updated 12/09/24 @ 08:20 by Balta Becerra MD) Left shoulder pain Right shoulder pain Social History (Updated 10/29/24 @ 09:13 by KRISTOFER Medel) Patient Tobacco Use Status: Never used Tobacco Current occupational status: retired Current occupation: rt handed Physical Exam Vital Signs: BMI result Body Mass Index 21.8 Const Other: Well-nourished well-developed very friendly female awake alert and oriented x3 in no acute distress Extrem Other: Left shoulder examination shows slightly decreased range of motion when compared to her right shoulder, 4+ out of 5 strength with supraspinatus testing, positive impingement signs, no instability Results Reviewed Results Reviewed: MRI of the patient's left shoulder shows moderate to severe acromioclavicular joint narrowing, a type 2 acromion, signal change within the supraspinatus tendon most likely due to rotator cuff tendinosis Assessment & Plan Assessment & Plan (1) Impingement syndrome of left shoulder: Code(s): M75.42 - Impingement syndrome of left shoulder Category: Medical Plan Ms. Reyes presents with intermittent left shoulder pain due to impingement syndrome. I had a lengthy discussion with the patient regarding the treatment options. At this point the patient's symptoms are tolerable to her. She will continue with her [id number] exercises to prevent stiffness. She will follow up in our neurosurgery department for further evaluation of her neck pain next month as scheduled. She will follow up with me on an as-needed basis s hould her shoulder symptoms worsen in any way. Feel free to call me at any time should questions regarding her orthopedic management arise. I spent 21 minutes in reviewing the patient's records and imaging studies, seeing the patient and documenting in the medical record. Coding Level of Care Code Est Pt Level 3 (82177) Complex EM visit Add On G2211 Diagnoses Impingement syndrome of left shoulder M75.42
[2024-12-09 08:05] VITALS: BMI 21.8
--- OUTSIDE RECORDS SUMMARY | 2024-12-09 08:13 | XMS_ITS | Clinical Summary ---
Author Organization 175 [facility] Address [address] [place] [address] Phone Care Team Providers Care Size Stamper Name Role Phone Melisa Jensen MD Primary Care Provider [phone] Allergies Active Allergy Reactions Criticality Noted Date [...] of the cervical spine today taken at [facility] and it shows good position of [...] Description 10/12/2024 1:45 PM EDT Office Visit [facility] 175 [facility] [address] [place] [address] Sangeeta Hayward MD Neck pain on left side (Primary Dx) 10/01/2024 5:11 PM EDT - 10/01/2024 9:29 PM EDT Emergency [facility] Emergency [address] [place] [address] Bilateral flank pain (Primary Dx); LUQ pain Discharge Disposition: Home or Self Care 09/17/2024 Telephone [facility] 175 [facility] [address] [place] [address] Joann Myers PA from Last [...] 58 10/01/2024 5:57 PM EDT Temperature 36.7 C (98.1 F) 10/01/2024 5:57 PM EDT Respiratory Rate 16 10/01/2024 5:57 PM EDT [...] Chester MD on 10/01/2024 20:09:55 Fransico Mitchell HI IM CT PROCEDURES Final Result * CBC [...] 6:18 PM EDT [facility] NRBC Absolute 0.00 <0.10 K/mcL LAB HEMETOLOGY METHOD 10/01/2024 6:18 PM [facility] Neutrophils Relative 57.6 % LAB HEMETOLOGY METHOD 10/01/2024 6:18 PM [facility] Lymphocytes Relative 33.6 % LAB HEMETOLOGY METHOD 10/01/2024 6:18 PM EDT [facility] Monocytes Relative 5.0 % [...] K/mcL LAB [facility] Eosinophils Absolute 0.26 0.00 - 0.50 K/mcL LAB HEMETOLOGY METHOD [facility] Basophils Absolute 0.07 0.00 [...] Final Resu lt [facility] [address] [place] [address], [place] [phone] * Lipase (10/01/2024 5:23 PM EDT) Lipase 60 13 - 75 unit/L LAB CHEMISTRY METHOD 10/01/2024 6:38 PM EDT [facility] Blood Venous blood specimen / Unknown Venipuncture / Unknown 10/01/2024 5:23 PM EDT 10/01/2024 6:01 PM EDT Fransico FIGUEROA LAB BLOOD ORDERABLES Final Resul t Performing Organization Address [facility]/ZIP Co de Phone Number [facility] [address] [place] [address], [place] [phone] * (ABNORMAL) Comprehensive metabolic panel (10/01/2024 5:23 PM EDT) Sodium 139 133 - 145 mmol/L LAB CHEMISTRY METHOD 10/01/2024 6:38 PM EDT [facility] Potassium 4.1 3.5 - 5.5 mmol/L LAB CHEMISTRY METHOD 10/01/2024 6:38 PM EDT [facility] Chloride 106 96 - 110 mmol/L LAB CHEMISTRY METHOD 10/[facility]2024 6:[facility] CO2 25 21 - 32 mmol/L LAB CHEMISTRY METHOD 10/01/2024 6:38 PM [facility] Anion Gap 8 3 - 11 LAB CHEMISTRY METHOD 10/01/2024 6:38 PM [facility] Glucose 92 70 - 100 mg/dL LAB CHEMISTRY METHOD 10/01/2024 6:38 PM [facility] BUN 15 5 - 25 mg/dL LAB CHEMISTRY METHOD 10/01/2024 6:38 PM [facility] Creatinine 0.95 0.50 - 1.10 mg/dL LAB CHEMISTRY METHOD 10/01/2024 6:38 PM [facility] eGFR 69 >=60 mL/min/1. 73m2 LAB CHEMISTRY METHOD 10/01/2024 6:38 PM [facility] Comment:Calculation based on the Chronic Kidney Disease Epidemiology Collaboration (CKD-EPI) equation refit without adjustment for race. BUN/Creatinine Ratio 15.8 LAB CHEMISTRY METHOD 10/01/2024 6:38 PM [facility] Calcium 10.6(H) 8.5 - 10.5 mg/dL LAB CHEMISTRY METHOD 10/01/2024 6:38 PM [facility] AST (SGOT) 24 10 - 42 unit/L LAB CHEMISTRY METHOD 10/01/2024 6:38 PM [facility] ALT (SGPT) 21 10 - 60 unit/L LAB CHEMISTRY METHOD 10/01/2024 6:38 PM [facility] Alkaline Phosphatase 65 42 - 121 unit/L LAB CHEMISTRY METHOD 10/01/2024 6:38 PM [facility] Total Protein 7.7 6.0 - [...] ORDERABLES Final Resu lt Performing Organization Address City/[facility]/ZIP Co de Phone Number [facility] [address] [place] [address], [place] [phone] * ECG 12 lead (10/01/2024 4:55 PM EDT) Ventricular Rate ECG 57 BPM GEMUSE Atrial Rate 57 BPM GEMUSE P-R Interval 158 ms GEMUSE QRS Duration 92 ms GEMUSE Q-T Interval 448 ms GEMUSE QTc 436 ms GEMUSE P Wave [place] 61 degrees GEMUSE R [place] -32 degrees GEMUSE T [place] 24 degrees GEMUSE ECG Interpretation Sinus bradycardia [...] ECG ORDERABLES Final Result Performing Organization Address City/[facility]/ZIP Co de Phone Number GEMUSE * (ABNORMAL) Urinalysis with reflex microscopic and culture (10/01/2024 3:55 PM EDT) Pathologist [facility] Specific [place] Urine 1.006 1.003 - 1.030 LAB URINALYSIS - AUTOMATED METHOD 10/01/2024 4:13 PM EDT [facility] pH, Urine 6.5 5.0 [...] 4:13 PM [facility] WBC, Urine 3.9 0 - 4 /HPF LAB URINALYSIS - AUTOMATED METHOD 10/01/2024 4:13 PM [facility] Squamous Epithelial, Urine 64(H) 0 - 60 /LPF LAB URINALYSIS - AUTOMATED METHOD 10/01/2024 4:13 PM [facility] Bacteria, Urine Negative Negative /HPF [...] ORDERABLES Final Resu lt Performing Organization Address [facility]/ZIP Co de Phone Number [facility] [address] [place] [address], [place] [phone] * Ward urine culture tube (10/01/2024 3:55 PM EDT) Extra Tube Hold for add-ons. 10/01/2024 6:02 PM EDT [facility] Comment:Auto resulted. Urine Urine specimen obtained by clean catch procedure / Unknown Non-blood Collection / Unknown 10/01/2024 3:55 PM EDT 10/01/2024 4:07 PM EDT us Rashard Boyd MD LAB URINE ORDERABLES Final Resu lt Performing Organization Address [facility]/ZIP Co de Phone Number [facility] [address] [place] [address], [place] [phone] * Culture urine (10/01/2024 3:55 PM EDT) Culture, Urine <10,000 cfu/ml, insignificant count, no further workup. 10/02/2024 8:23 AM EDT [facility] Urine Urine specimen obtained by clean catch procedure / Unknown Non-blood Collection / Unknown 10/01/2024 3:55 PM EDT 10/01/2024 4:13 PM EDT us Rashard Boyd MD LAB MICROBIOLOGY - GENERAL CAR [place] Final Result [facility] [address] [place] [address], * (ABNORMAL) Lipid panel (05/08/2018) Pathologist [facility] LDL/HDL Ratio 5(A) 0 - 4 Triglycerides 254(A) 0 - 150 mg/dL Cholesterol 255(A) 0 - 200 mg/dL HDL 53 >=40 mg/dL LDL Cholesterol 152(A) 0 - 100 mg/dL Blood Venous blood specimen / Unknown Historical Provider LAB BLOOD ORDERABLES Naomi l Result * Cervical Cancer Screening: HPV (10/17/2016) Pathologist [facility] Cervical Cancer Screening: HPV Abstracted, Negative Historical Provider HEALTH MAINTENANCE Final Result from Last 3 Months or Most Recently Relevant to Health Maintenance Insurance [facility] [place] [address] [employer] Advance Directives Documents on File Type Date Recorded 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
== END 2024-12-09 08:19 | disposition home or self-care (01) ==
LOC: HO.HOS 08:02
PROVIDERS: PCP Internal Medicine; Visit Provider Orthopaedic Surgery
DX: M75.42 Impingement syndrome of left shoulder (principal)
CPT/HCPCS: 99213; G2211

== ENCOUNTER → 2024-12-09 08:01 | Outpatient (BNVA) | payer OTHER, SELFPAY | PROVIDERS: PCP Internal Medicine; Visit Provider Orthopaedic Surgery ==

== ENCOUNTER 2024-12-23 13:53 | Outpatient (AMB) | payer OTHER, SELFPAY ==
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
--- OUTSIDE RECORDS SUMMARY | 2024-12-23 14:27 | XMS_ITS | Clinical Summary ---
Author Organization 175 [facility] Address [address] [place] [address] Phone Care Team Providers Care Informix Developer Name Role Phone Melisa Jensen MD Primary Care Provider [phone] Allergies Active Allergy Reactions Criticality Noted Date [...] of the cervical spine today taken at [facility] and it shows good position of [...] Description 10/12/2024 1:45 PM EDT Office Visit Neuro[facility] [address] [facility] [address] [place] [address] Sangeeta Hayward MD Neck pain on left side (Primary Dx) 10/01/2024 5:11 PM EDT - 10/01/2024 9:29 PM EDT Emergency [facility] Emergency [address] [place] [address] Bilateral flank pain (Primary Dx); LUQ pain Discharge Disposition: Home or Self Care from Last 3 Months Immunizations Name Administration [...] Td or Tdap) 04/23/2024 04/23/2014 Influenza Vaccine (#1) 2025 2, 04/08/2021, 07/08/2019 RSV Immunization Adult Patients (1 [...] esult * ECG-Annotated (10/02/2024) us Provider Onbase MD [...] CBC auto differential (10/01/2024 5:23 PM EDT) [facility] WBC 9.2 4.8 - 10.8 K/mcL LAB HEMETOLOGY METHOD 10/01/2024 6:18 PM EDT [facility] RBC 4.20 3.80 - 4.80 M/mcL LAB HEMETOLOGY METHOD 10/01/2024 6:18 PM EDT [facility] Hemoglobin 12.8 11.5 - 16.0 g/dL LAB HEMETOLOGY METHOD 10/01/2024 6:18 PM EDT [facility] Hematocrit 39.3 35.0 - 47.0 % LAB HEMETOLOGY METHOD 10/01/2024 6:18 PM EDT [facility] MCV 94.5 79.0 - 98.0 FL LAB HEMETOLOGY METHOD 10/01/2024 6:18 PM EDT [facility] MCH 30.8 27.0 - 32.0 pcg LAB HEMETOLOGY METHOD 10/01/2024 6:18 PM EDT [facility] MCHC 32.6 32.0 - 37.0 g/dL LAB HEMETOLOGY METHOD 10/01/2024 6:18 PM EDT [facility] RDW 12.5 11.0 - 15.0 % LAB HEMETOLOGY METHOD 10/01/2024 6:18 PM EDT [facility] Platelets 322 130 - 400 K/mcL LAB HEMETOLOGY METHOD 10/01/2024 6:18 PM EDT [facility] MPV 10.2 7.0 - 11.0 FL LAB HEMETOLOGY METHOD 10/01/2024 6:18 PM EDT [facility] NRBC 0.0 <1.0 % LAB HEMETOLOGY METHOD 10/01/2024 6:18 PM EDT [facility] NRBC Absolute 0.00 <0.10 K/mcL LAB HEMETOLOGY METHOD 10/01/2024 6:18 PM EDT [facility] Neutrophils Relative 57.6 % LAB HEMETOLOGY METHOD 10/01/2024 6:18 PM [facility] Lymphocytes Relative 33.6 % LAB HEMETOLOGY METHOD [facility]24 [facility] Monocytes Relative 5.0 % LAB HEMETOLOGY METHOD 10/01[facility]2024 6:[facility] Eosinophils Relative 2.8 % LAB HEMETOLOGY METHOD 10/01/2024 6:18 PM [facility] Basophils Relative 0.8 % LAB HEMETOLOGY METHOD 10/01/2024 6:18 PM [facility] Immature Granulocytes Relative 0.2 % LAB HEMETOLOGY METHOD 10/01/2024 6:18 PM [facility] Neutrophils Absolute 5.29 1.50 - 7.00 K/mcL LAB HEMETOLOGY METHOD 10/01/2024 6:18 PM [facility] Lymphocytes Absolute 3.08 1.00 - 5.00 K/mcL LAB HEMETOLOGY METHOD 10/01/2024 6:18 PM [facility] Monocytes Absolute 0.46 0.20 - 1.00 K/mcL LAB HEMETOLOGY METHOD 10/01/2024 6:18 PM [facility] Eosinophils Absolute 0.26 0.00 - 0.50 K/mcL LAB HEMETOLOGY METHOD 10/01/2024 6:18 PM [facility] Basophils Absolute 0.07 0.00 - 0.20 K/mcL LAB HEMETOLOGY METHOD 10/01/2024 6:18 PM [facility] Immature Granulocytes Absolute 0.02 0.00 - 0.03 K/mcL LAB HEMETOLOGY METHOD 10/01/2024 6:18 PM EDT [facility] Blood Venous blood specimen / Unknown Venipuncture / Unknown 10/01/2024 5:23 PM EDT 10/01/2024 6:01 PM EDT us Rashard Boyd MD LAB BLOOD ORDERABLES Final Resu lt Performing Organization Address [facility]/ZIP Co de Phone Number [facility] [address] [place] [address], [place] [phone] * Lipase (10/01/2024 5:23 PM EDT) Pathologist [facility] Lipase 60 13 - 75 unit/L LAB CHEMISTRY METHOD 10/01/2024 6:38 PM EDT [facility] Blood Venous blood specimen / Unknown Venipuncture / Unknown 10/01/2024 5:23 PM EDT 10/01/2024 6:01 PM EDT Fransico FIGUEROA LAB BLOOD ORDERABLES Final Resul t Performing Organization Address [facility] de Phone Number [facility] [address] [place] [address], [place] [phone] * (ABNORMAL) Comprehensive metabolic panel (10/01/2024 5:23 PM EDT) Pathologist [facility] Sodium 139 133 - 145 mmol/L LAB CHEMISTRY METHOD 10/01/2024 6:38 PM EDT [facility] Potassium 4.1 3.5 - 5.5 mmol/L LAB CHEMISTRY METHOD 10/01/2024 6:38 PM EDT [facility] Chloride 106 96 - 110 mmol/L LAB CHEMISTRY METHOD 10/01/2024 6:38 PM EDT [facility] CO2 25 21 - 32 mmol/L LAB CHEMISTRY METHOD 10/01/2024 6:38 PM EDT [facility] Anion Gap 8 3 - 11 LAB CHEMISTRY METHOD 10/01/2024 6:38 PM [facility] Glucose 92 70 - 100 mg/dL LAB CHEMISTRY METHOD 10/01/2024 6:38 PM [facility] BUN 15 5 - 25 mg/dL LAB CHEMISTRY METHOD 10/01/2024 6:38 PM [facility] Creatinine 0.95 0.50 - 1.10 mg/dL LAB CHEMISTRY METHOD 10/01/2024 6:38 PM [facility] eGFR 69 >=60 mL/min/1. 73m2 LAB CHEMISTRY METHOD 10/01/2024 6:38 PM [facility] Comment:Calculation based on the Chronic Kidney Disease Epidemiology Collaboration (CKD-EPI) equation refit without adjustment for race. BUN/Creatinine Ratio 15.8 LAB CHEMISTRY METHOD 10/01/2024 6:38 PM [facility] Calcium 10.6(H) 8.5 - 10.5 mg/dL LAB CHEMISTRY METHOD 10/01/2024 6:38 PM [facility] AST (SGOT) 24 10 - 42 unit/L LAB CHEMISTRY METHOD 10/01/2024 6:38 PM [facility] ALT (SGPT) 21 10 - 60 unit/L LAB CHEMISTRY METHOD 10/01/2024 6:38 PM [facility] Alkaline Phosphatase 65 42 - 121 unit/L LAB CHEMISTRY METHOD 10/01/2024 6:38 PM [facility] Total Protein 7.7 6.0 - 8.0 g/dL LAB CHEMISTRY METHOD 10/01/2024 6:38 PM [facility] Albumin 4.9 3.2 - 5.0 g/dL LAB CHEMISTRY METHOD 10/01/2024 6:38 PM [facility] Total Bilirubin 0.6 0.0 - 1.4 mg/dL LAB CHEMISTRY METHOD 10/01/2024 6:38 PM EDT [facility] Blood Venous blood specimen / Unknown Venipuncture / Unknown 10/01/2024 5:23 PM EDT 10/01/2024 6:01 PM EDT Rashard Boyd MD LAB BLOOD ORDERABLES Final Resu lt Performing Organization Address [facility] Co de Phone Number [facility] [address] [place] [address], [place] [phone] * ECG 12 lead (10/01/2024 4:55 PM EDT) Pathologist [facility] Ventricular Rate ECG 57 BPM GEMUSE Atrial Rate 57 BPM GEMUSE P-R Interval 158 ms GEMUSE QRS Duration 92 ms GEMUSE Q-T Interval 448 ms GEMUSE QTc 436 ms GEMUSE P Wave [place] 61 degrees GEMUSE R [place] -32 degrees GEMUSE T [place] 24 degrees GEMUSE ECG Interpretation Sinus bradycardia with sinus arrhythmia Left axis deviation Minimal voltage criteria for LVH, may be normal variant Abnormal ECG When compared with ECG of 15-MAR-2024 14:47, No significant change was found Confirmed by JOSÉ JOE ([id number]) on 10/03/2024 8:48:14 AM GEMUSE 10/01/2024 4:55 PM EDT 10/03/2024 8:48 AM EDT Fransico FIGUEROA ECG ORDERABLES Final Result Performing Organization Address [facility] de Phone Number GEMUSE * (ABNORMAL) Urinalysis with reflex microscopic and culture (10/01/2024 3:55 PM EDT) [facility] Specific [place] Urine 1.006 1.003 - 1.030 LAB URINALYSIS - AUTOMATED METHOD 10/01/2024 4:13 PM EDT [facility] pH, Urine 6.5 5.0 - 8.0 pH LAB URINALYSIS - AUTOMATED METHOD 10/01/2024 4:13 PM EDT [facility] Leukocytes, Urine Small(A) Negative LAB URINALYSIS - AUTOMATED METHOD 10/01/2024 4:13 PM [facility] Nitrite, Urine Negative Negative LAB URINALYSIS - AUTOMATED METHOD 10/01/2024 4:13 PM [facility] Protein, Urine Negative <=Trace mg/dL LAB URINALYSIS - AUTOMATED METHOD 10/01/2024 4:13 PM [facility] Glucose, Urine Negative Negative mg/dL LAB URINALYSIS - AUTOMATED METHOD 10/01/2024 4:13 PM [facility] Ketones, Urine Negative Negative mg/dL LAB URINALYSIS - AUTOMATED METHOD 10/01/2024 4:13 PM [facility] Urobilinogen, Urine 0.2 0.2 - 1.0 mg/dL LAB URINALYSIS - AUTOMATED METHOD 10/01/2024 4:13 PM [facility] Bilirubin, Urine Negative Negative LAB URINALYSIS - AUTOMATED METHOD 10/01/2024 4:13 PM [facility] Blood, Urine Negative Negative LAB URINALYSIS - AUTOMATED METHOD 10/01/2024 4:13 PM [facility] RBC, Urine 0.5 0 - 4 /HPF LAB URINALYSIS - AUTOMATED METHOD 10/01/2024 4:13 PM [facility] WBC, Urine 3.9 0 - 4 /HPF LAB URINALYSIS - AUTOMATED METHOD 10/01/2024 4:13 PM [facility] Squamous Epithelial, Urine 64(H) 0 - 60 /LPF LAB URINALYSIS - AUTOMATED METHOD 10/01/2024 4:13 PM [facility] Bacteria, Urine Negative Negative /HPF LAB URINALYSIS - AUTOMATED METHOD 10/01/2024 4:13 PM [facility] Hyaline Casts, Urine 1.6 0 - 3 /LPF LAB URINALYSIS - AUTOMATED METHOD 10/01/2024 4:13 PM EDT [facility] Urine Urine specimen obtained by clean catch procedure / Unknown Non-blood Collection / Unknown 10/01/2024 3:55 PM EDT 10/01/2024 4:07 PM EDT us Rashard Boyd MD LAB URINE ORDERABLES Final Resu lt Performing Organization Address City/[facility]/ZIP Co de Phone Number [facility] [address] [place] [address], [place] [phone] * Ward urine culture tube (10/01/2024 3:55 PM EDT) Extra Tube Hold for add-ons. 10/01/2024 6:02 PM EDT [facility] Comment:Auto resulted. Urine Urine specimen obtained by clean catch procedure / Unknown Non-blood Collection / Unknown 10/01/2024 3:55 PM EDT 10/01/2024 4:07 PM EDT us Rashard Boyd MD LAB URINE ORDERABLES Final Resu lt Performing Organization Address [facility] Co de Phone Number [facility] [address] [place] [address], [place] [phone] * Culture urine (10/01/2024 3:55 PM EDT) Culture, Urine <10,000 cfu/ml, insignificant count, no further workup. 10/02/2024 8:23 AM EDT [facility] Urine Urine specimen obtained by clean catch procedure / Unknown Non-blood Collection / Unknown 10/01/2024 3:55 PM EDT 10/01/2024 4:13 PM EDT us Rashard Boyd MD LAB MICROBIOLOGY - GENERAL ORDE RABLES Final Result Performing Organization Address City/[facility]/ZIP Co de Phone Number [facility] [address] [place], [place] [address] [phone] * (ABNORMAL) Lipid panel (05/08/2018) LDL/HDL Ratio [...] Most Recently Relevant to Health Maintenance Insurance [facility] HE[facility]AN [employer]STATE Advance Directives Documents on File Type Date 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
== END 2024-12-23 15:33 | disposition home or self-care (01) ==
LOC: HO.HNS 13:53
PROVIDERS: PCP Internal Medicine; Referring Provider Orthopaedic Surgery; Visit Provider Neurological Surgery
DX: S13.4XXA Sprain of ligaments of cervical spine, initial encounter (principal)
CPT/HCPCS: 99204